=== PATIENT | male | born 1930 | race Caucasian/White ===

== ENCOUNTER 2017-09-21 10:49 | Inpatient (IN) | payer OTHER, MEDICARE ==
[~2017-09-21] VITALS: Ht 177.8 cm; Wt 68.0 kg
[~2017-09-21 10:49] MED LIST: ASPIRIN EC81 M1 PO; COUMADIN4 M1 PO; COUMADIN5 M2 PO; FERROUS SULFAT325 M3 PO; LOVENOX40 MG/0.1 SC; PERCOCET 5-3251 EACH PO
--- NOTE | 2017-09-21 11:06 | ED MVC/FALL/TRAUMA COMPLAINT ---
History of Present Illness General Chief Complaint: Fall Stated Complaint: BIBA L HEEL PAIN S/P FALL X3 DAYS AGO Source: patient Exam Limitations: no limitations Vital Signs & Intake/Output Vital Signs & Intake/Output Vital Signs Date Time Temp Pulse Resp B/P B/P Pulse O2 O2 Flow FiO2 Mean Ox Delivery Rate 09/21 1512 97.8 53 20 180/94 98 Room Air 09/21 1310 96.8 56 18 170/86 97 Room Air 09/21 1124 Room Air 09/21 1052 97.9 56 18 176/87 97 Room Air Allergies Coded Allergies: Iodine and Iodide Containing Produc (Severe, 01/21/16) Reconcile Medications No Known Home Medications Triage Note: BIBA FROM HOME WITH CHIEF COMPLAINT OF LEFT HEEL PAIN, PER FAMILY PATIENT FELL 3 DAYS AGO, EMS ASSISTED PATIENT OFF THE GROUND BUT PATIENT REFUSED TRANSPORT TO THE HOSPITAL. FAMILY CALLED EMS THIS AM DUE TO INABILITY TO AMBULATE AND INCREASE IN PAIN. PATIENT IS ALERT, BUT CONFUSED, LEFT KNEE IS ROTATED INWARD, PULSES PRESENT IN BLE. IS A POOR HISTORIAN. Triage Nurses Notes Reviewed? yes Onset: Abrupt Duration: day(s):, constant Timing: recent history Severity: severe Injuries/Fall Location: lower extremity Method of Injury: fall HPI: 87-year-old male comes into the emergency room for further evaluation of inability to ambulate. Patient reportedly fell 4 days ago. Ambulance came over and did a lift assist. Patient has been laying in the bed since then. He complains of pain to his left hip left knee and left foot. EMS reports that the living conditions of the house were not suitable. There was diarrhea on the floor. They have no help at home. He denies any fever chills vomiting. Denies any other substances symptoms. (Ray Pérez) Past History Travel History Traveled to [place] past 21 day No Medical History Any Pertinent Medical History? see below for history Neurological: NONE EENT: NONE Cardiovascular: hypertension Respiratory: NONE Gastrointestinal: NONE Hepatic: NONE Renal: NONE Musculoskeletal: NONE Psychiatric: NONE Endocrine: NONE Blood Disorders: NONE Cancer(s): NONE History of MRSA: No History of VRE: No History of CDIFF: No Surgical History Surgical History: hernia repair-inguinal (right side) Psychosocial History Who do you live with Spouse Services at Home None What is your primary language Serbian Family History Family History, If Any: MOTHER (cardimyopathyr). Hx Contributory? No (Ray Pérez) Review of Systems Review of Systems Constitutional: Reports: no symptoms. Eyes: Reports: no symptoms. Ears, Nose, Throat, Mouth: Reports: no symptoms. Respiratory: Reports: no symptoms. Cardiovascular: Reports: no symptoms. Gastrointestinal/Abdominal: Reports: no symptoms. Genitourinary: Reports: no symptoms. Musculoskeletal: Reports: see HPI. Skin: Reports: no symptoms. Neurological/Psychological: Reports: no symptoms. All Other Systems: Reviewed and Negative (Ray Pérez) Physical Exam Physical Exam General Appearance: well developed/nourished, alert, awake Head: atraumatic Eyes: Bilateral: normal appearance, EOMI. Ears, Nose, Throat, Mouth: hearing grossly normal, moist mucous membrane Neck: normal inspection Respiratory: no respiratory distress Cardiovascular: regular rate/rhythm Back: normal inspection Extremities: normal range of motion Neurologic/Psych: awake, alert, oriented x 3 Skin: intact, normal color Core Measures ACS in differential dx? No CVA/TIA Diagnosis No Sepsis Present: No Sepsis Focused Exam Completed? No (Ray Pérez) Progress Differential Diagnosis: abd injury, C/T/L spine injury, ext injury, pelvis injury, pnemothorax, spinal cord injury Plan of Care: Orders Procedure Date/time Status Regular Diet 09/21 D Active Patient Data 09/[address] PELVIS WO IV CONTRAST 09/[address] LUMB SPINE WO IV CONTRAST 09/21 1518 Active ED Holding Orders 09/21 1430 Active Admit to inpatient 09/21 1430 Active Vital Signs 09/21 1430 Active Code Status 09/21 1430 Active Add-on Test (ER Only) 09/21 1310 Active CREATINE PHOSPHOKINASE 09/21 1115 Complete URINALYSIS 09/21 1105 Active TROPONIN LEVEL 09/21 1105 Complete COMPREHENSIVE METABOLIC PANEL 09/21 1105 Complete CBC WITHOUT DIFFERENTIAL 09/21 1105 Complete EKG 09/21 1105 Active Current Medications Sig/Lucrecia Start time Last Medication Dose Stop Time Status Admin Sodium Chloride 1,000 ML ONCE ONE 09/21 1415 AC 09/21 (Normal Saline 0.9%) 09/21 2054 1509 Laboratory Tests 09/21/17 1115: Anion Gap 10, Estimated GFR 48 L, BUN/Creatinine Ratio 27.1 H, Glucose 88, Calcium 9.5, Total Bilirubin 0.8, AST 25, ALT 16 L, Alkaline Phosphatase 73, Creatine Kinase 157, Troponin I 0.02, Total Protein 8.4 H, Albumin 4.0, Globulin 4.4 H, Albumin/Globulin Ratio 0.9 L, CBC w Diff NO MAN DIFF REQ, RBC 4.25 L, MCV 93.5, MCH 31.5 H, MCHC 33.7, RDW 14.1, MPV 8.1, Gran % 68.2, Lymphocytes % 24.1, Monocytes % 6.1, Eosinophils % 1.1, Basophils % 0.5, Absolute Granulocytes 5.9, Absolute Lymphocytes 2.1, Absolute Monocytes 0.5, Absolute Eosinophils 0.1, Absolute Basophils 0 Diagnostic Imaging: Viewed by Me: Radiology Read. Discussed w/RAD: Radiology Read. Radiology Impression: PATIENT: MARBELLA ROSENBERG PRESENT AGE: 87 PATIENT ACCOUNT NO: [id number] : [birth year] LOCATION: [facility] ORDERING PHYSICIAN: Ray CARDOSO SERVICE DATE: 09/21/17 EXAM TYPE: RAD - XRY-FOOT COMPLETE, LEFT; XRY-HIP 2-3 VIEWS, LEFT; XRY-KNEE COMPLETE LEFT; XRY- TIBIA-FIBULA, LEFT EXAMINATION: XR PELVIS AND HIP, LEFT XR KNEE, LEFT XR TIBIA AND FIBULA, LEFT XR FOOT, LEFT CLINICAL INFORMATION: Fall. Patient cannot walk. Rule out trauma. COMPARISON: Pelvis and bilateral hip films dated 06/25/2017 TECHNIQUE: Frontal view of the pelvis and coned-down 2 frontal and one crosstable lateral views of the left hip. 4 views of the left knee. 2 views of the left tibia and fibula performed on 3 images. 4 views of the left foot. FINDINGS: PELVIS AND LEFT HIP: Diffuse osteopenia. Intramedullary nail and compression screw in the left hip is again seen transfixing an old healed intertrochanteric fracture of the left hip. Hardware remains intact and unchanged when compared to the prior exam. There is again noted some lucency surrounding the intramedullary nail in the proximal femur, unchanged from prior exam, possibly related to foreign body reaction. No acute fracture or dislocation is seen. There is a sclerotic density in the right femoral head, unchanged from prior exam, likely a bone island. The pubic symphysis is intact. Sacroiliac joints bilaterally are poorly visualized but appear grossly intact. The bony sacrum and coccyx are poorly assessed. Visualized portions appearing similar to the previous pelvis film. Fracture of the sacrum, however, cannot be excluded based on this image. Mild degenerative changes are seen in the hip joints bilaterally, unchanged from prior exam. Mild degenerative changes as seen in the lower lumbar spine. Arteriovascular calcifications is seen in the soft tissues of the pelvis and proximal thighs. LEFT KNEE: Diffuse osteopenia. No acute fracture or dislocation. Mild narrowing of the patellofemoral compartment with associated spurring seen. Medial and lateral femoral compartments unremarkable. No significant knee joint effusion. LEFT TIBIA AND FIBULA: Diffuse osteopenia. No acute fracture or dislocation. No ankle joint effusion. Ankle mortise is intact and unremarkable. LEFT FOOT: Views osteopenia. No acute fracture or dislocation. Moderate degenerative changes in the intertarsal and tarsometatarsal joints seen with likely partial fusion across several of the joints. Mild degenerative changes are seen at the interphalangeal joints of all digits. No radiopaque foreign body is seen. IMPRESSION: 1. Diffuse osteopenia. No definite acute fracture involving the left hip, left knee, left tibia and fibula, and left foot. 2. As discussed above, the bony sacrum and coccyx are not adequately assessed and while the appearance is similar to the previous pelvis film, subtle fracture deformity cannot be excluded. 3. Left hip hardware transfixing an old intratrochanteric hip fracture appears intact and small amount of lucency around the intramedullary nail remains stable, possibly related to foreign body reaction. DICTATED BY: Va Del Rosario MD DATE/TIME DICTATED:09/21/171313 FOIL CUTTER:MELVINA DATE/TIME TRANSCRIBED:1313 CONFIDENTIAL, DO NOT COPY WITHOUT APPROPRIATE AUTHORIZATION. < Electronically signed in Other Vendor System> SIGNED BY: Va Del Rosario MD 09/21/17 1331 Initial ED EKG: rate (68), AFIB (aflutter) (Ray Pérez) Departure Departure Disposition: STILL A PATIENT Condition: Stable Referrals: Patient Has No Primary Care Dr Departure Forms: Customer Survey General Discharge Information Prescriptions: Current Visit Scripts No Known Home Medications Admission Note Spoke With: Marilou Nelson MD Documentation of Exam: Documentation of any treatments & extenuating circumstances including Concerns Regarding Discharge (functional status, medication knowledge or non-compliance, living conditions, etc.) that warrant an admission rather than observation: Patient is unable to ambulate here in the emergency room. Patient will require gentle IV hydration. IV antibiotics. High risk. Medically not safe for discharge. (Ray Pérez) Departure Clinical Impression Primary Impression: Acute kidney injury Secondary Impressions: Multifactorial gait disorder PA/SALES ADMINISTRATION SPECIALIST Co-Sign Statement Statement: ED Attending supervision documentation- [X] I saw and evaluated the patient. I have also reviewed all the pertinent lab results and diagnostic results. I agree with the findings and the plan of care as documented in the PA's/SALES ADMINISTRATION SPECIALIST's documentation. [X] I have reviewed the ED Record and agree with the PA's/SALES ADMINISTRATION SPECIALIST's documentation. [] Additions or exceptions (if any) to the PAs/SALES ADMINISTRATION SPECIALIST's note and plan are summarized below: [Patient is unstable to go home. Patient is not ambulatory. Patient will need IV hydration, renal consultation, physical therapy consultation] (Ina DOVE,Magdaleno Queen
[2017-09-21 11:26] LABS: ABSOLUTE BASOPHIL COUNT 0 /CUMM (0.0-0.2); ABSOLUTE EOSINOPHIL COUNT 0.1 /CUMM (0.0-0.7); ABSOLUTE GRANULOCYTE CT 5.9 /CUMM (1.4-6.5); ABSOLUTE LYMPH COUNT 2.1 /CUMM (1.2-3.4); ABSOLUTE MONOCYTE COUNT 0.5 /CUMM (0.10-0.60); BASOPHIL % 0.5 % (0.0-2.0); EOSINOPHIL % 1.1 % (0-5); GRANULOCYTE % 68.2 % (42.2-75.2); HEMATOCRIT 39.8 % (42-52); MEAN CORPUSCULAR HGB 31.5 PG (27.0-31.0); MEAN CORPUSCULAR HGB CONC 33.7 G/DL (33.0-37.0); MEAN CORPUSCULAR VOLUME 93.5 FL (80.0-94.0); MEAN PLATELET VOLUME 8.1 FL (7.4-10.4); PLATELET COUNT 268 /CUMM (130-400); RBC DISTRIBUTION WIDTH 14.1 % (11.5-14.5); RED BLOOD CELL CT 4.25 /CUMM (4.70-6.10); WHITE BLOOD CELL COUNT 8.6 /CUMM (4.8-10.8)
--- NOTE | 2017-09-21 13:31 | RADIOLOGY REPORT ---
EXAMINATION: XR PELVIS AND HIP, LEFT XR KNEE, LEFT XR TIBIA AND FIBULA, LEFT XR FOOT, LEFT CLINICAL INFORMATION: Fall. Patient cannot walk. Rule out trauma. COMPARISON: Pelvis and bilateral hip films dated 06/25/2017 TECHNIQUE: Frontal view of the pelvis and coned-down 2 frontal and one crosstable lateral views of the left hip. 4 views of the left knee. 2 views of the left tibia and fibula performed on 3 images. 4 views of the left foot. FINDINGS: PELVIS AND LEFT HIP: Diffuse osteopenia. Intramedullary nail and compression screw in the left hip is again seen transfixing an old healed intertrochanteric fracture of the left hip. Hardware remains intact and unchanged when compared to the prior exam. There is again noted some lucency surrounding the intramedullary nail in the proximal femur, unchanged from prior exam, possibly related to foreign body reaction. No acute fracture or dislocation is seen. There is a sclerotic density in the right femoral head, unchanged from prior exam, likely a bone island. The pubic symphysis is intact. Sacroiliac joints bilaterally are poorly visualized but appear grossly intact. The bony sacrum and coccyx are poorly assessed. Visualized portions appearing similar to the previous pelvis film. Fracture of the sacrum, however, cannot be excluded based on this image. Mild degenerative changes are seen in the hip joints bilaterally, unchanged from prior exam. Mild degenerative changes as seen in the lower lumbar spine. Arteriovascular calcifications is seen in the soft tissues of the pelvis and proximal thighs. LEFT KNEE: Diffuse osteopenia. No acute fracture or dislocation. Mild narrowing of the patellofemoral compartment with associated spurring seen. Medial and lateral femoral compartments unremarkable. No significant knee joint effusion. LEFT TIBIA AND FIBULA: Diffuse osteopenia. No acute fracture or dislocation. No ankle joint effusion. Ankle mortise is intact and unremarkable. LEFT FOOT: Views osteopenia. No acute fracture or dislocation. Moderate degenerative changes in the intertarsal and tarsometatarsal joints seen with likely partial fusion across several of the joints. Mild degenerative changes are seen at the interphalangeal joints of all digits. No radiopaque foreign body is seen. IMPRESSION: 1. Diffuse osteopenia. No definite acute fracture involving the left hip, left knee, left tibia and fibula, and left foot. 2. As discussed above, the bony sacrum and coccyx are not adequately assessed and while the appearance is similar to the previous pelvis film, subtle fracture deformity cannot be excluded. 3. Left hip hardware transfixing an old intratrochanteric hip fracture appears intact and small amount of lucency around the intramedullary nail remains stable, possibly related to foreign body reaction.
--- NOTE | 2017-09-21 15:41 | History & Physical ---
Yvette DOVE,Magdaleno 09/21/17 1540: General Information and HPI Allergies/Medications Allergies: Coded Allergies: Iodine and Iodide Containing Produc (Severe, 01/21/16) Home Med list No Known Home Medications Past History Travel History Traveled to [place] past 21 day No Medical History Neurological: NONE EENT: NONE Cardiovascular: aflutter, hypertension Respiratory: NONE Gastrointestinal: NONE Hepatic: NONE Renal: NONE Musculoskeletal: osteoarthritis Psychiatric: NONE Endocrine: NONE Blood Disorders: NONE Cancer(s): NONE History of MRSA: No History of VRE: No History of CDIFF: No Surgical History Surgical History: hernia repair-inguinal (right side) Past Family/Social History Family History Relations & Conditions if any MOTHER (cardimyopathyr). Psychosocial History Who Do You Live With? spouse Services at Home: None Primary Language: Upper Sorbian, Armenian ETOH Use: denies use Illicit Drug Use: denies illicit drug use Living Will? unknown Functional Ability ADLs Independent: dressing, eating, toileting, bathing. Ambulation: independent Core Measures/Misc (03/31) Cerebrovascular Accident CVA/TIA Diagnosis: No Leslie,Marilou 09/21/17 1555: Attending MD Review Statement Attending Statement Attending MD Statement: examined this patient, discuss w/resident/PA/PROPERTY MAINTENANCE SUPERVISOR, agreed w/resident/PA/PROPERTY MAINTENANCE SUPERVISOR, discussed with family, reviewed EMR data (avail), discussed with nursing, discussed with case mgmt, reviewed images, amended to note Attending Assessment/Plan: 87 o/m with pmh of afib/flutter, bph , non compliant, fecal incontinence, generalsied weakness comes with inability to ambualte and unsafe living conditions at home. Patient is limited hisotrian, bedsided gives little bit and pieces of histroy. Labs with absent leukocytosis with mild eleavtion of creatinine. [facility] and generalised physical deconditioning. Will send for UA, urine culture, CT spine r /o compression fracture. PT consult and case management consult. Consider cardiology for a/c. gi/dvt prophyalxis full code. Kailash DOVE,Nicole 09/21/17 2851: Resident Review Statement Resident Statement: examined this patient, discussed with paid internship, agreed with paid internship, reviewed EMR data (avail)
--- NOTE | 2017-09-21 18:40 | CT SCAN REPORT ---
EXAMINATION: NONCONTRAST CT OF THE PELVIS AND LUMBAR SPINE CLINICAL INFORMATION: Low back pain and pelvic pain COMPARISON: Pelvis radiographs 06/25/2017. TECHNIQUE: Multidetector CT acquisitions of the lumbar spine and pelvis are obtained without contrast. Multiplanar reformats are acquired and utilized for image interpretation. FINDINGS: Pelvis: No acute fractures are identified. There is a qian and pin within the proximal left femur with adjacent heterotopic bone formation. No periprosthetic fracture is identified. Stable sclerotic focus within the right femoral head, possibly an enostosis. Aneurysmal dilatation of the infrarenal abdominal aorta measuring up to 5 cm in AP dimension. Aortoiliac atherosclerotic calcification. 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 Significant bladder wall thickening with adjacent stranding that could reflect cystitis and the can be correlated with urinalysis. Distal ureters are mildly dilated. There is a large bowel and fat containing right inguinal hernia without evidence of bowel obstruction. Lumbar spine: 5 nonrib-bearing lumbar-type vertebral bodies Moderate to severe compression deformity at T12 is stable in comparison to a chest x-ray from 06/25/2017. Age-indeterminate compression deformities at the L1-L4 levels with associated endplate Schmorl's nodes. Lumbar alignment is maintained. There is moderate to severe disc volume loss at L4-L5. There is cholelithiasis. There is a left renal cyst. As discussed above there is an infrarenal abdominal aortic aneurysm. Based on the atherosclerotic calcific pattern of the abdominal aorta there may be a few penetrating atherosclerotic ulcers along the periphery of the infrarenal abdominal aorta. Multilevel lumbar spondylosis that is greatest at L4-L5 were multifactorial degenerative changes result in moderate bilateral foraminal stenosis. No definite severe central canal stenosis. IMPRESSION: - Stable appearing chronic compression deformity at T12. Age-indeterminate compression deformities at the L1-L4 levels with associated endplate Schmorl's nodes thickening definitively assessed with MRI if indicated. Multilevel lumbar spondylosis that is greatest at L4-L5 were multifactorial degenerative changes result in moderate bilateral foraminal stenosis. - No acute osseous findings within the pelvis. Significant bladder wall thickening with adjacent stranding that could reflect cystitis and the can be correlated with urinalysis. Distal ureters are mildly dilated. - Aneurysmal dilatation of the infrarenal abdominal aorta measuring up to 5 cm in AP dimension. Based on the atherosclerotic calcific pattern of the abdominal aorta there may be a few penetrating atherosclerotic ulcers along the periphery of the infrarenal abdominal aorta. No retroperitoneal hematoma is identified. 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 - There is a large large bowel and fat containing right inguinal hernia without evidence of bowel obstruction. - Cholelithiasis.
--- NOTE | 2017-09-21 18:45 | CT SCAN REPORT ---
CT HEAD WITHOUT CONTRAST CLINICAL INFORMATION: Fall with confusion. COMPARISON: None available. TECHNIQUE: Contiguous axial imaging was performed from the skull base to vertex without intravenous administration of contrast. 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 A pituitary protocol MRI with and without IV contrast is recommended for further assessment. A primary pituitary lesion such as a macroadenoma is favored with an aneurysm felt to be less likely. There is a extra-axial fluid collection along the lateral margin of the left cerebellum. There is ventricular prominence is disproportionate to sulcal prominence that can be correlated for clinical signs of normal pressure hydrocephalus. There is no intracranial hemorrhage. Spears to white matter differentiation is diffusely maintained without evidence of an evolved acute territorial infarct. The basilar cisterns are preserved. No significant soft tissue abnormality. No acute osseous abnormality. The paranasal sinuses and the mastoid air cells are well-aerated. 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 A pituitary protocol MRI with and without IV contrast is recommended for further assessment. A primary pituitary lesion such as a macroadenoma is favored with an aneurysm felt to be much less likely. - There is ventricular prominence is disproportionate to sulcal prominence that can be correlated for clinical signs of normal pressure hydrocephalus. - No intracranial hemorrhage. There is an extra-axial fluid collection adjacent to the lateral left cerebellum.
--- NOTE | 2017-09-21 20:30 | History & Physical ---
Kee DOVE,[facility] 09/21/17 2030: General Information and HPI MD Statement: I have seen and personally examined MARBELLA ROSENBERG and documented this H&P. The patient is a 87 year old M who presented with a patient stated chief complaint of [fall]. Source of Information: patient History of Present Illness: 87 yo M with a pmhx of afib, htn and hip fracture presenting for fall. The patient states that he fell 4 days ago when the power went out. He states that he was walking to bed 4 years ago and tripped over his feet. He could not get up after trying. He states that his could not pick him up off the ground. He states that he injured his heel when he fell. Since he was unable to get up, he went to bed on the floor next to his acutal bed. 911 was called the next morning who helped him up and walking and states he was not ok. He denies any loss of consciousness, prodromal symptoms or seizure symptoms. The patient decided to go to the ED today because he continued to have L foot pain/burning. Of note the patient states he has not seen a pcp in severeal years and never followed up with cardiology after his last admission for his afib. He has not been taking any anticoagulation. He was found to be in aflutter/fib and the patient adamantly denied any anticoagulation and understood the risks. He complains of L knee and L heel pain, diarrhea x 1 episode and decreased appiteite. He denies lightheadeness, cp, palpitations, abd pain, or n/v. Of note that patients states that his was not wearing his glasses during this incident. Allergies/Medications Allergies: Coded Allergies: Iodine and Iodide Containing Produc (Severe, 01/21/16) Home Med list No Known Home Medications Past History Travel History Traveled to [place] past 21 day No Medical History Neurological: NONE EENT: NONE Cardiovascular: aflutter, hypertension Respiratory: NONE Gastrointestinal: NONE Hepatic: NONE Renal: NONE Musculoskeletal: osteoarthritis Psychiatric: NONE Endocrine: NONE Blood Disorders: NONE Cancer(s): NONE History of MRSA: No History of VRE: No History of CDIFF: No Isolation History: Standard Surgical History Surgical History: hernia repair-inguinal (right side) Past Family/Social History Family History Relations & Conditions if any MOTHER (cardimyopathyr). Psychosocial History Who Do You Live With? spouse Services at Home: None Primary Language: Divehi, Japanese ETOH Use: denies use Illicit Drug Use: denies illicit drug use Living Will? unknown Functional Ability ADLs Independent: dressing, eating, toileting, bathing. Ambulation: independent Review of Systems Review of Systems Constitutional: Reports: see HPI. Cardiovascular: Reports: no symptoms. Respiratory: Reports: no symptoms. GI: Reports: diarrhea. Musculoskeletal: Reports: see HPI, joint pain. Exam & Diagnostic Data Last 24 Hrs of Vital Signs/I&O Vital Signs Date Time Temp Pulse Resp B/P B/P Pulse O2 O2 Flow FiO2 Mean Ox Delivery Rate 09/22 1515 97.2 81 18 116/88 96 Room Air 09/22 0649 97.8 54 18 142/78 95 Room Air 09/22 0000 Room Air 09/21 2300 97.1 64 20 110/84 95 Room Air 09/21 1824 97.8 68 18 170/82 97 Room Air Intake & Output 09/22 1600 09/22 0800 09/22 0000 Intake Total 840 277.5 Output Total Balance 840 277.5 Intake, IV 600 37.5 Intake, Oral 240 240 Number 0 Bowel Movements Patient 157 lb Weight Weight Bed scale Measurement Method Physical Exam General Appearance Alert, Oriented X3, Cooperative, No Acute Distress, Pt leaning / favoring R side HEENT cn2-12 grossly intact, slight L facial droop Cardiovascular Regular Rate, Normal S1, Normal S2 Lungs Clear to Auscultation, Normal Air Movement Abdomen Normal Bowel Sounds, Soft, No Tenderness Extremities no tenderness after palpation of upper or lower extremities, ?L sacral bruise with associated tenderness to palpation Vascular 2+ radial pulses Body Front and Back (Adult) 1) Last 24 Hrs of Labs/Willie: Laboratory Tests 09/22/17 1615: Troponin I 0.02 09/22/17 0600: Sodium Cancelled, Potassium Cancelled, Chloride Cancelled, Carbon Dioxide Cancelled, Anion Gap Cancelled, BUN Cancelled, Creatinine Cancelled, BUN/ Creatinine Ratio Cancelled, Troponin I Cancelled 09/22/17 0440: Anion Gap 6, Estimated GFR 48 L, BUN/Creatinine Ratio 27.1 H, Troponin I 0.02, CBC w Diff NO MAN DIFF REQ, RBC 3.78 L, MCV 93.9, MCH 31.5 H, MCHC 33.6, RDW 13.8, MPV 8.0, Gran % 63.0, Lymphocytes % 26.2, Monocytes % 8.7, Eosinophils % 1.5, Basophils % 0.6, Absolute Granulocytes 4.6, Absolute Lymphocytes 1.9, Absolute Monocytes 0.6, Absolute Eosinophils 0.1, Absolute Basophils 0 09/22/17 0346: Sodium Cancelled, Potassium Cancelled, Chloride Cancelled, Carbon Dioxide Cancelled, Anion Gap Cancelled, BUN Cancelled, Creatinine Cancelled, BUN/ Creatinine Ratio Cancelled 09/22/17 0336: Troponin I Cancelled Assessment/Plan Assessment: A: 87 yo M with a pmhx of afib, htn and hip fracture and severe noncompliance presenting for fall P: #Afib/aflutter Pt REFUSES anticoagulation -f/u cardiology consult -pt understands risks #Fall WBC 8.6 Trop .02x3 Head Ct:- There is a large sellar/suprasellar mass measuring up to 2.6 cm AP by 2 cm TV by 2.4 cm CC. A pituitary protocol MRI with and without IV contrast is recommended for further assessment. A primary pituitary lesion such as a macroadenoma is favored with an aneurysm felt to be much less likely. There is ventricular prominence is disproportionate to sulcal prominence that can be correlated for clinical signs of normal pressure hydrocephalus. No intracranial hemorrhage. There is an extra-axial fluid collection adjacent to the lateral left cerebellum. Pelvis ct: - Stable appearing chronic compression deformity at T12. Age- indeterminate compression deformities at the L1-L4 levels with associated endplate Schmorl's nodes thickening definitively assessed with MRI if indicated. Multilevel lumbar spondylosis that is greatest at L4-L5 were multifactorial degenerative changes result in moderate bilateral foraminal stenosis. - No acute osseous findings within the pelvis. Significant bladder wall thickening with adjacent stranding that could reflect cystitis and the can be correlated with urinalysis. Distal ureters are mildly dilated. - Aneurysmal dilatation of the infrarenal abdominal aorta measuring up to 5 cm in AP dimension. Based on the atherosclerotic calcific pattern of the abdominal aorta there may be a few penetrating atherosclerotic ulcers along the periphery of the infrarenal abdominal aorta. No retroperitoneal hematoma is identified. 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 - There is a large large bowel and fat containing right inguinal hernia without evidence of bowel obstruction. - Cholelithiasis. XR PELVIS AND HIP, LEFT, XR KNEE LEFT ,XR TIBIA AND FIBULA LEFT ,XR FOOT LEFT : 1. Diffuse osteopenia. No definite acute fracture involving the left hip,n left knee, left tibia and fibula, and left foot. 2. As discussed above, the bony sacrum and coccyx are not adequately assessed and while the appearance is similar to the previous pelvis film, subtle fracture deformity cannot be excluded. 3. Left hip hardware transfixing an old intratrochanteric hip fracture appears intact and small amount of lucency around the intramedullary nail remains stable, possibly related to foreign body reaction. -follow UA -fall precuations -pt -pain control -ortho consult for sacral area -cardiology consult, echo per cardiology -trend trops, ekg #suprasellar mass -consider inpatient endo workup vs outpatient per primary team #ckd Cr 1.4 -at baseline, cont to monitor #AAA and RCA -consider vascular consult per primary team, apepars chronic vs outpatient workup #DNR DNI #DVT prophyalxis - subq heparin As Ranked By This Provider Problem List: 1. Fall 2. Atrial flutter Core Measures/Misc (03/31) Acute Coronary Syndrome ACS Diagnosis: No Congestive Heart Failure Congestive Heart Failure Diagnosis No Cerebrovascular Accident CVA/TIA Diagnosis: No VTE (View Protocol) VTE Risk Factors Acute Medical Illness No Mechanical VTE Prophylaxis d/t Other No VTE Pharm Prophylaxis d/t NA PharmProphylax ordered Sepsis (View protocol) Sepsis Present: No Sukhwinder Schmidt 09/21/17 2301: General Information and HPI Exam Limitations: patient's age Resident Review Statement Resident Statement: examined this patient, discussed with music internship, amended to note Other Findings: Ms Rosenberg is an 87-year-old man with a past medical history of hypertension, old troch hip fracture was brought from home in with a chief concern of inability to ambulate secondary to fall that occurred 3 days ago. He also has a chief concern of increased left hip, left knee and left foot. As per the pt, he fell down when there was a power outage a few nights ago and could not get up off the floor. He remained on the floor overnight, until the help arrived in the a.m. Reported that he did not have any loss of consciousness, prodromal symptoms, or had any loss of bladder or bowel function. Reported decreased by mouth intake after the episode occurred, and has been taking aspirin ever since. He does not take any medications as prescribed. He has not seen any primary care physician in the last few years, and reported that he does not want to take any medications. For his atrial fibrillation, he has not been taking any medications such as anticoagulates or rate controlling medications. At the time of [id number] 97.9, pulse rate 56, respiration 18, blood pressure 176/87, 97% on room air. On examination: General Exam: AAOx3, No acute distress, decreased vision ( which is chronic ) Skin: No rashes, no breakdown HEENT: PERRLA, EOMI Neck: Supple, No JVD No cervical lymphadenopathy CVS: Reg Rate, Normal S1,S2, No MGR Resp: Normal air entry, no ronchi/rales Abdomen: Soft, No tenderness, Normal Bowel Sounds Neuro: Normal Speech, Strength 5/5 b/l x 4 extremities, Sensation intact, CN III -XII NL, Reflexes 2+ Extremities: No cyanosis, pedal edema, ecchymosis in the sacral area w/ associated tenderness. Pertinent lab findings: WBC 8.6, hemoglobin 13.4, platelets 268, sodium 139, potassium 4.4, BUN 38, creatinine 1.4. Liver chemistries-AST 25, ALT 16, total protein 8.4. CPK 157. Urinalysis-pending. EKG reveals atrial flutter, rate controlled, no ST-T wave changes. 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 A pituitary protocol MRI with and without IV contrast is recommended for further assessment. A primary pituitary lesion such as a macroadenoma is favored with an aneurysm felt to be much less likely. - There is ventricular prominence is disproportionate to sulcal prominence that can be correlated for clinical signs of normal pressure hydrocephalus. - No intracranial hemorrhage. There is an extra-axial fluid collection adjacent to the lateral left cerebellum. CT lumbar spine: - Stable appearing chronic compression deformity at T12. Age-indeterminate compression deformities at the L1-L4 levels with associated endplate Schmorl's nodes thickening definitively assessed with MRI if indicated. Multilevel lumbar spondylosis that is greatest at L4-L5 were multifactorial degenerative changes result in moderate bilateral foraminal stenosis. - No acute osseous findings within the pelvis. Significant bladder wall thickening with adjacent stranding that could reflect cystitis and the can be correlated with urinalysis. Distal ureters are mildly dilated. - Aneurysmal dilatation of the infrarenal abdominal aorta measuring up to 5 cm in AP dimension. Based on the atherosclerotic calcific pattern of the abdominal aorta there may be a few penetrating atherosclerotic ulcers along the periphery of the infrarenal abdominal aorta. No retroperitoneal hematoma is identified. 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 - There is a large large bowel and fat containing right inguinal hernia without evidence of bowel obstruction. - Cholelithiasis. X-ray foot, hip, knee, tibia-fibula: 1. Diffuse osteopenia. No definite acute fracture involving the left hip, left knee, left tibia and fibula, and left foot. 2. As discussed above, the bony sacrum and coccyx are not adequately assessed and while the appearance is similar to the previous pelvis film, subtle fracture deformity cannot be excluded. 3. Left hip hardware transfixing an old intratrochanteric hip fracture appears intact and small amount of lucency around the intramedullary nail remains stable, possibly related to foreign body reaction. Etiology for his fall is multifactorial with dehydration, cardiac causes, deconditioning seem more likely. In regards to his radiological findings, he has stable chronic compression deformity at T12. Bony sacrum and coccyx by chest x-ray could not be visualized to rule out a fracture, which could be evaluated further. He also has an incidental diagnosis of aneurysmal dilatation in the abdominal aorta up to 5 cm, with no previous findings to follow up. Plan: #1 atrial flutter #2 fall #3 hypertension #4 AAA #6 Rule out fracture of sacrum and coccyx #7 pituitary macroadenoma #1 atrial flutter-given his high chadVasc score, he needs to be anticoagulated for the time being. Pt doesnt want to anticoagulated. Discussed the risks versus benefits and he understands the risks completely. #2 adequate rate control, if required #3 monitor on telemetry #4 pain control with Tylenol, tramadol, Lidoderm patch. #5 further endocrine workup of pituitary by the a.m. team. #6 orthopedic consult. #7 cardiac consult in the a.m. #8 trend EKGs, troponins #9 deferred the decision to the behavior specialist, if an echocardiogram is warranted. Housekeeping: #1 DVT prophylaxis-subcutaneous heparin #2 DNR/DNI #3 diet-regular diet #4 consults-orthopedic, cardiology. Marilou Nelson 09/22/17 1003: Exam & Diagnostic Data Last 24 Hrs of Vital Signs/I&O Vital Signs Date Time Temp Pulse Resp B/P B/P Pulse O2 O2 Flow FiO2 Mean Ox Delivery Rate 09/22 0649 97.8 54 18 142/78 95 Room Air 09/22 0000 Room Air 09/21 2300 97.1 64 20 110/84 95 Room Air 09/21 1824 97.8 68 18 170/82 97 Room Air 09/21 1600 84 18 170/82 95 Room Air 09/21 1512 97.8 53 20 180/94 98 Room Air Intake & Output 09/22 1600 09/22 0800 09/22 0000 Intake Total 840 277.5 Output Total Balance 840 277.5 Intake, IV 600 37.5 Intake, Oral 240 240 Number 0 Bowel Movements Patient 71.356 kg Weight Weight Bed scale Measurement Method Attending MD Review Statement Attending Statement Attending MD Statement: examined this patient, discuss w/resident/PA/[employer]ER, agreed w/resident/PA/[employer] FARMER, discussed with family, reviewed EMR data (avail), discussed with nursing, discussed with case mgmt, reviewed images, amended to note Attending Assessment/Plan: 87 o/m with pmh of afib/flutter, bph , non compliant, fecal incontinence, generalsied weakness comes with inability to ambualte and unsafe living conditions at home. Patient found to have afib with bradycardia. Admit to [facility] tele[facility] services for afib/bradycardia and inability to ambulate and generalised physical deconditioning. UA, urine culture, CT spine r/ o compression fracture. PT consult and case management consult. Consider cardiology for a/c. gi/dvt prophyalxis full code.
[2017-09-21 23:00] VITALS: BP 110/84
[2017-09-22 05:32] LABS: ABSOLUTE BASOPHIL COUNT 0 /CUMM (0.0-0.2); ABSOLUTE EOSINOPHIL COUNT 0.1 /CUMM (0.0-0.7); ABSOLUTE GRANULOCYTE CT 4.6 /CUMM (1.4-6.5); ABSOLUTE LYMPH COUNT 1.9 /CUMM (1.2-3.4); ABSOLUTE MONOCYTE COUNT 0.6 /CUMM (0.10-0.60); BASOPHIL % 0.6 % (0.0-2.0); EOSINOPHIL % 1.5 % (0-5); HEMATOCRIT 35.5 % (42-52); MEAN CORPUSCULAR HGB 31.5 PG (27.0-31.0); MEAN CORPUSCULAR HGB CONC 33.6 G/DL (33.0-37.0); MEAN CORPUSCULAR VOLUME 93.9 FL (80.0-94.0); PLATELET COUNT 256 /CUMM (130-400); RBC DISTRIBUTION WIDTH 13.8 % (11.5-14.5); RED BLOOD CELL CT 3.78 /CUMM (4.70-6.10); WHITE BLOOD CELL COUNT 7.3 /CUMM (4.8-10.8)
[2017-09-22 06:49] VITALS: BP 142/78
--- NOTE | 2017-09-22 12:05 | Cons- Cardiology ---
General Information and HPI Consulting Request Date of Consult: 09/22/17 Requested By: Marilou Nelson MD History of Present Illness: Mr. Matos is an 87 year old male with history of hypertension, atrial fibrillation and multiple falls. About four days ago this patient was walking in the dark during the power outage when he fall with injury to his left hip, knee and foot. He was not able to arise from the floor until help arrived in the morning after this event. The patient denies fainting or any pre-monitory symptoms. He denies chest discomfort, shortness of breath, lightheadedness or palpitations. 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 At that time he was found to be in atrial fibrillation with slow heart rate even in the absence of rate control medications. He was also recommended to take anticoagulation but refused to take medications of follow up with any physician. This patient is noted to have an extremely slow heart rate. At this time the patient refuses a pacemaker. Allergies/Medications Allergies: Coded Allergies: Iodine and Iodide Containing Produc (Severe, 01/21/16) Home Med List: No Known Home Medications Review of Systems Review of Systems: * A review of systems is unremarkable. Past History Travel History Traveled to [place] past 21 day No Medical History Blood Transfusion Hx: No Neurological: NONE EENT: NONE Cardiovascular: aflutter, hypertension Respiratory: NONE Gastrointestinal: NONE Hepatic: NONE Renal: NONE, benign prost hyperplasia Musculoskeletal: osteoarthritis Psychiatric: NONE Endocrine: NONE Blood Disorders: NONE Cancer(s): NONE Surgical History Surgical History: hernia repair-inguinal (right side) Family History Relations & Conditions If Any: MOTHER (cardimyopathyr). Psychosocial History Where Do You Live? Home Who Do You Live With? spouse Services at Home: None Primary Language: Malagasy, Austrian Smoking Status: Former Smoker ETOH Use: denies use Illicit Drug Use: denies illicit drug use Living Will? unknown Functional Ability ADLs Independent: dressing, eating, toileting, bathing. Ambulation: independent Exam & Diagnostic Data Vital Signs and I&O Vital Signs Date Time Temp Pulse Resp B/P B/P Pulse O2 O2 Flow FiO2 Mean Ox Delivery Rate 09/22 0649 97.8 54 18 142/78 95 Room Air 09/22 0000 Room Air 09/21 2300 97.1 64 20 110/84 95 Room Air 09/21 1824 97.8 68 18 170/82 97 Room Air 09/21 1600 84 18 170/82 95 Room Air 09/21 1512 97.8 53 20 180/94 98 Room Air 09/21 1310 96.8 56 18 170/86 97 Room Air Intake & Output 09/22 1600 09/22 0800 09/22 0000 09/21 1600 09/21 0800 09/21 0000 Intake Total 840 277.5 0 Output Total Balance 840 277.5 0 Intake, IV 600 37.5 Intake, Oral 240 240 0 Number 0 Bowel Movements Patient 157 lb 180 lb Weight Weight Bed scale Estimated Measurement Method Physical Exam: General: WD/WN female in NAD; alert and oriented x 3 HEENT: NC/AT, PERRL, EOMI Neck: no JVD, no carotid bruit Heart: irregularly irregular and bradycardic Lungs: clear bilaterally ABdomen: soft, NT, +ve bowel sounds Extremities: no edema Assessment/Plan Assessment/Plan * This patient is bradycardic and has had multiple falls. It is unclear if the falls are due to tripping or passing out but I strongly suspect that, even if due to tripping, it may be related to decreased concentration from decreased cerebral perfusion in the setting of his severe bradycardia. A pacemaker is indicated but is currently being refused by the patient. His will talk to him. * In regard to his atrial fibrillation, he is rate controlled off all medications consistent with conduction system disease. Check a TSH and free T4 and lyme disease titer. I would leave this patient off all anticoagulation which he does not want to take since he is a fall risk. * This patient is hypertensive and has a TSH showing an AAA. In consideration of his already slow heart rate we will not need to begin beta blockers. I would also hold off on all other antihypertensive medications unless her is protected by a pacemaker. He should be on a statin if he is willing to take it. Consult Acknowledgment - Thank you for your consult request.
--- NOTE | 2017-09-22 14:10 | PN- Att Addend ---
Attending Addendum Attending Brief Note 87 yo M states that he fell 4 days ago when the power went out. He states that he was wlaking to bed 4 years ago and tripped over his feet. He could not get up after trying. He states that his could not pick him up off the group. He states that he injured his heel when he fell. He states wesley the went to bed on the floor next to his acutal bed. 911 was called who helped him up and walking and states he was not ok. Patient seen/examined bedside. Patient is tolerating PO. Patient denies any new complaints. Vitals stable. Labs and imaging noted. Overnight needed atropine for bradycardia, Cardiology consutled and appreciate recommendations. General Exam: AAOx3, No acute distress, decreased vision ( which is chronic ) Skin: no significant HEENT: PERRLA, EOMI Neck: Supple, No JVD No cervical lymphadenopathy CVS: Reg Rate, Normal S1,S2, No MGR Resp: Normal air entry, no ronchi/rales Abdomen: Soft, No tenderness, Normal Bowel Sounds Neuro: Normal Speech, Strength 5/5 b/l x 4 extremities, Sensation intact, CN III -XII NL, Reflexes 2+ Extremities: ecchymosis in the sacral area w/ associated tenderness+. ASSESSMENT AND PLAN 87 o/m with pmh of afib/flutter, bph , non compliant, fecal incontinence, generalsied weakness comes with inability to ambualte and unsafe living conditions at home. Admit to telemtery monitoring for atrial fibrillation with bradycardia and conduction system disease with generalised physical deconditioning and fall. CT spine with chronic stable compression fracture. Orthopedics consult. PT consult and case management consult. F/u cardiology for a/c. (patient refuses a/c) gi/dvt prophyalxis full code. Admission Lab Results I reviewed the following labs: Laboratory Tests 09/22 09/22 09/22 0600 0440 0346 Chemistry Sodium (137 - 145 mmol/L) Cancelled 137 Cancelled Potassium (3.5 - 5.1 mmol/L) Cancelled 3.9 Cancelled Chloride (98 - 107 mmol/L) Cancelled 108 H Cancelled Carbon Dioxide (22 - 30 mmol/L) Cancelled 22 Cancelled Anion Gap (5 - 16) Cancelled 6 Cancelled BUN (9 - 20 mg/dL) Cancelled 38 H Cancelled Creatinine (0.7 - 1.2 mg/dL) Cancelled 1.4 H Cancelled Estimated GFR (>60 ml/min) 48 L BUN/Creatinine Ratio (7 - 25 %) Cancelled 27.1 H Cancelled Troponin I (<0.11 ng/ml) Cancelled 0.02 Hematology CBC w Diff NO MAN DIFF REQ WBC (4.8 - 10.8 /CUMM) 7.3 RBC (4.70 - 6.10 /CUMM) 3.78 L Hgb (14.0 - 18.0 G/DL) 11.9 L Hct (42 - 52 %) 35.5 L MCV (80.0 - 94.0 FL) 93.9 MCH (27.0 - 31.0 PG) 31.5 H MCHC (33.0 - 37.0 G/DL) 33.6 RDW (11.5 - 14.5 %) 13.8 Plt Count (130 - 400 /CUMM) 256 MPV (7.4 - 10.4 FL) 8.0 Gran % (42.2 - 75.2 %) 63.0 Lymphocytes % (20.5 - 51.1 %) 26.2 Monocytes % (1.7 - 9.3 %) 8.7 Eosinophils % (0 - 5 %) 1.5 Basophils % (0.0 - 2.0 %) 0.6 Absolute Granulocytes (1.4 - 6.5 /CUMM) 4.6 Absolute Lymphocytes (1.2 - 3.4 /CUMM) 1.9 Absolute Monocytes (0.10 - 0.60 /CUMM) 0.6 Absolute Eosinophils (0.0 - 0.7 /CUMM) 0.1 Absolute Basophils (0.0 - 0.2 /CUMM) 0 09/22 0336 Chemistry Troponin I Cancelled Admission Meds I reviewed the following Meds: Current Medications Sig/Lucrecia Start time Last Medication Dose Stop Time Status Admin Acetaminophen 500 MG Q8 09/21 2200 AC 09/22 (Tylenol) 0626 Acetaminophen 650 MG Q6P PRN 09/21 1845 AC (Tylenol) Atropine Sulfate 1 MG ONE PRN 09/22 0315 AC (Atropine) Dextrose/Sodium 1,000 ML .[id number] 09/21 1845 AC 09/21 Chloride 2304 (D5W-1/2 Normal Saline 1000ML) Heparin Sodium 5,000 UNIT Q8 09/21 2199 AC 09/22 (Porcine) 0626 Heparin Sodium 5,000 UNIT Q8 09/21 2199 CAN (Porcine) Lidocaine 1 PAT DAILY 09/21 2199 AC 09/22 (Lidoderm) 0932 Melatonin 3 MG AT BEDTIME 09/21 2199 AC 09/21 (Melatonin) 2307 Oxycodone HCl 5 MG Q8P PRN 09/21 2215 AC (Roxicodone) Tramadol HCl 50 MG Q8P PRN 09/21 2215 AC (Ultram)
[2017-09-22 15:15] VITALS: BP 116/88
--- NOTE | 2017-09-22 19:38 | Cons- Orthopedic ---
General Information and HPI Consulting Request Date of Consult: 09/22/17 Requested By: Marilou Nelson MD Reason for Consult: Possible Compression fracture Source of Information: patient, old records Exam Limitations: unable to give history, confusion History of Present Illness: This patient was recently admitted with a history of a fall and complained of back pain. Patient had evaluation including CT scan which showed what appeared to be a chronic-appearing compression of T12 but question of subacute lumbar deformities. Consult was placed for possible compression fracture. Patient complains of some pain. No paresthesias Allergies/Medications Allergies: Coded Allergies: Iodine and Iodide Containing Produc (Severe, 01/21/16) Home Med List: No Known Home Medications Past History Medical History Blood Transfusion Hx: No Neurological: NONE EENT: NONE Cardiovascular: aflutter, hypertension Respiratory: NONE Gastrointestinal: NONE Hepatic: NONE Renal: NONE, benign prost hyperplasia Musculoskeletal: osteoarthritis Psychiatric: NONE Endocrine: NONE Blood Disorders: NONE Cancer(s): NONE Surgical History Pertinent Surgical History: hernia repair-inguinal (right side) Family History Relations & Conditions If Any: MOTHER (cardimyopathyr). Psychosocial History Where Do You Live? Home Who Do You Live With? spouse Services at Home: None Primary Language: Peruvian, Thai Smoking Status: Former Smoker ETOH Use: denies use Illicit Drug Use: denies illicit drug use Living Will? unknown Functional Ability ADLs Independent: dressing, eating, toileting, bathing. Ambulation: independent Exam & Diagnostic Data Vital Signs and I&O Vital Signs Date Time Temp Pulse Resp B/P B/P Pulse O2 O2 Flow FiO2 Mean Ox Delivery Rate 09/22 1515 97.2 81 18 116/88 96 Room Air 09/22 0649 97.8 54 18 142/78 95 Room Air 09/22 0000 Room Air 09/21 2300 97.1 64 20 110/84 95 Room Air Intake & Output 09/22 1600 09/22 0800 09/22 0000 09/21 1600 09/21 0800 09/21 0000 Intake Total 840 277.5 0 Output Total Balance 840 277.5 0 Intake, IV 600 37.5 Intake, Oral 240 240 0 Number 0 Bowel Movements Patient 157 lb 180 lb Weight Weight Bed scale Estimated Measurement Method Physical Exam: Patient very sleepy but arousable. Some confusion. Complains of some back pain. There is tenderness along the lumbar spine midline no definite deformity by exam. Moving both lower extremities . Difficult to assess strength exam but does not appear to be asymmetric Imaging Results: I reviewed CT scan which revealed chronic deformity at T12. Question of subacute wedging of multiple lumbar vertebral bodies as well as bony deformity of endplates which may represent Schmorl's nodes. It is difficult to determine whether these findings are acute or not Assessment/Plan Assessment/Plan Possible acute compression fracture lumbar spine-the only way to determine whether these are acute would be to consider MRI evaluation versus bone scan. If there is any questions clinically, I recommended an MRI evaluation if not contraindicated for other reasons. I explained this to the resident. Lumbosacral support can be used for comfort and to help with ambulation though there are have been other significant limitations to ambulation. Consult Acknowledgment - Thank you for your consult request. Attending MD Review Statement Attending Statement Attending MD Statement: examined this patient, discuss w/resident/PA/PRODUCT DEVELOPMENT MANAGER
[2017-09-22 22:57] VITALS: BP 120/80
[2017-09-23 07:30] VITALS: BP 196/104
[2017-09-23 07:35] VITALS: BP 152/86
--- NOTE | 2017-09-23 07:54 | PN- Housestaff ---
Subjective Follow-up For: 1. Mechanical fall 2. Atrial flutter with Bradycardia 3. Hypertension 4. JACQUELIN 5. ??Chronic Compression ddeformities L1-L4 Tele-Events Since Last Visit: Atrial flutter with multiple PVCs Heart 37-70 Subjective: Patient aware of his current Heart condition but does not want any intervention, states he has lived without medications or any heart device for 87 years and even now can survive without them. Denies any pain in his back,has only mild pain in his left heel. Review of Systems Constitutional: Reports: no symptoms. EENTM: Reports: no symptoms. Cardiovascular: Reports: no symptoms. Respiratory: Reports: no symptoms. Gastrointestinal: Reports: no symptoms. Genitourinary: Reports: no symptoms. Musculoskeletal: Reports: joint pain. Skin: Reports: no symptoms. Neurological/Psychological: Reports: no symptoms. Hematologic/Endocrine: Reports: no symptoms. Immunologic/Allergic: Reports: no symptoms. Objective Last 24 Hrs of Vital Signs/I&O Vital Signs Date Time Temp Pulse Resp B/P B/P Pulse O2 O2 Flow FiO2 Mean Ox Delivery Rate 09/23 0735 152/86 09/23 0730 97.5 85 20 196/104 94 Room Air 09/23 0612 74 194/104 09/22 2257 98.2 66 20 120/80 98 09/22 1515 97.2 81 18 116/88 96 Room Air Intake & Output 09/23 1600 09/23 0800 09/23 0000 Intake Total 625 660 Output Total 20 Balance 605 660 Intake, IV 525 300 Intake, Oral 100 360 Number 1 Bowel Movements Output, Urine 20 Patient 159 lb Weight Physical Exam General Appearance: Alert, Oriented X3, Cooperative, No Acute Distress Skin: No Rashes, No Breakdown Cardiovascular: Normal S1, Normal S2, Irregular Lungs: Normal Air Movement Abdomen: Normal Bowel Sounds, Soft, No Tenderness Extremities: No Clubbing, No Cyanosis, No Edema, Slight tenderness to palpation on left heel Current Medications: Current Medications Sig/Lucrecia Start time Last Medication Dose Route Stop Time Status Admin Acetaminophen 500 MG .STK-MED ONE 09/22 2220 DC PO 09/22 222 Acetaminophen 500 MG .STK-MED ONE 09/22 1814 DC PO 09/22 1815 Acetaminophen 500 MG Q8 09/21 2200 AC 09/22 PO 1400 Acetaminophen 650 MG Q6P PRN 09/21 1845 AC PO Atropine Sulfate 1 MG ONE PRN 09/22 0315 AC IV Dextrose/Sodium 1,000 ML .[id number] 09/21 1845 DC 09/23 Chloride IV 1205 Heparin Sodium 5,000 UNIT Q8 09/21 2200 AC 09/23 (Porcine) SC 0611 Hydralazine HCl 5 MG ONCE ONE 09/23 0600 DC 09/23 IV 09/23 0601 0612 Lidocaine 1 PAT DAILY 09/21 2199 AC 09/23 EXT 1206 Melatonin 3 MG AT BEDTIME 09/21 220 AC 09/22 PO 2226 Oxycodone HCl 5 MG Q8P PRN 09/21 221 AC PO Tramadol HCl 50 MG Q8P PRN 09/21 2215 AC PO Last 24 Hrs of Lab/Willie Results Last 24 Hrs of Labs/Mics: Laboratory Tests 09/23/17 1035: Anion Gap 8, Estimated GFR 57 L, BUN/Creatinine Ratio 30.8 H 09/23/17 0640: TSH 0.403, Free T4 1.26, Lyme Disease Antibody 0.13 09/23/17 0530: Urine Color YEL, Urine Clarity TURBD H, Urine pH 7.0, Ur Specific [place] 1.020 , Urine Protein 100 H, Urine Ketones NEG, Urine Nitrite NEG, Urine Bilirubin NEG, Urine Urobilinogen 0.2, Ur Leukocyte Esterase MOD H, Ur Microscopic SEDIMENT EXAMINED, Urine RBC >75 H, Urine WBC PACKD H, Ur Epithelial Cells OCCAS, Urine Bacteria MANY H, Urine Mucus MANY H, Urine Hemoglobin LARGE H, Urine Glucose NEG 09/22/17 1615: Troponin I 0.02 Microbiology 09/23 0530 URINE ROUT: Urine Culture - RECD Assessment/Plan Assessment: Ms Matos is an 87-year-old man with a past medical history of hypertension, Atrial fibrillation not on AC(patient refuses), old troch hip fracture was brought from home in with a chief concern of inability to ambulate secondary to fall that occurred 3 days ago. Problem List; 1. Mechanical fall 2. Atrial flutter with Bradycardia 3. Hypertension 4. JACQUELIN - resolved 5. ??Chronic Compression ddeformities L1-L4 6. Incidental finding of 5cm infrarenal abdominal aortic aneurysm 7. 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 Atropine at bedside. Also continue to watch off anticoagulation per cardiology. - Echocardiogram pending. - Appreciate cardiology recommendations. - PT consult for discharge recommendations - Psychiatric consult; To evaluate his capacity to make medical decisions as the patient is refusing any medical intervention or medications. - Patient currently not complaining of any back pain and states that he fractured his back when he had a fall 2 years ago. We will hold off on MRI for now. - JACQUELIN, patient had creatinine of 1.4 at the time of admission, trended down to 1.2. - Blood pressure this morning was 196/104, came down to 152/86 after 1 dose of IV hydralazine 5 mg. We will continue to monitor, if remains persistently high patient will need to be started on antihypertensive medications given aortic aneurysm and risk of dissection. - Outpatient follow-up for the incidental findings of infrarenal aortic aneurysm and sellar/suprasellar mass on head CT. Problem List: 1. Atrial flutter Pain Ratin Pain Location: Left Heel Pain Goal: Remain pain free Pain Plan: Pain Pathway Tomorrow's Labs & Rationales: CBC(drop in H&H)
--- NOTE | 2017-09-23 09:24 | PN- Cardiology ---
Subjective Subjective: The patient is awake and alert and wants to go home. He tells me he tripped in the dark as his power was out, and denies having dizziness, presyncope or nick syncope. He is aware of atrial fibrillation and is aware of a slow heart rate and is consistently refusing pacemaker and anticoagulation. He states he lives with his and has no surviving children at this time. There is some indication in the ED notes that his home situation was not sanitary. He has not seen any physicians since his last hospitalization in 2016. His last physician was Mike Xiong MD, according to him. Review of telemetry tracings reveal significant periods of bradycardia, and atrial fibrillation/flutter with heart rates in the 30s. These were apparently asymptomatic Objective Vital Signs and I&Os Vital Signs Date Time Temp Pulse Resp B/P B/P Pulse O2 O2 Flow FiO2 Mean Ox Delivery Rate 09/23 0735 152/86 09/23 0730 97.5 85 20 196/104 94 Room Air 09/23 0612 74 194/104 09/22 2257 98.2 66 20 120/80 98 09/22 1515 97.2 81 18 116/88 96 Room Air Intake & Output 09/23 1600 09/23 0800 09/23 0000 09/22 1600 09/22 0800 09/22 0000 Intake Total 398 479 0415 840 277.5 Output Total 20 Balance 919 617 4642 840 277.5 Intake, IV 588 359 7458 600 37.5 Intake, Oral 100 360 300 240 240 Number 1 2 0 Bowel Movements Output, Urine 20 Patient 159 lb 157 lb Weight Weight Bed scale Measurement Method Physical Exam: No acute distress. Awake and alert. Hard of hearing but otherwise appropriate answers. HEENT exam normal Chest clear Heart irregular, normal rate at this time, no murmurs Extremities no edema Current Medications: Current Medications Sig/Lucrecia Start time Last Medication Dose Route Stop Time Status Admin Acetaminophen 500 MG .STK-MED ONE 09/22 2220 DC PO 09/22 2221 Acetaminophen 500 MG .STK-MED ONE 09/22 1813 DC PO 09/22 1814 Acetaminophen 500 MG Q8 09/21 2200 AC 09/22 PO 1400 Acetaminophen 650 MG Q6P PRN 09/21 1845 AC PO Atropine Sulfate 1 MG ONE PRN 09/22 0315 AC IV Dextrose/Sodium 1,000 ML .[id number] 09/21 1845 AC 09/22 Chloride IV 195 Heparin Sodium 5,000 UNIT Q8 09/21 2199 AC 09/23 (Porcine) SC 0611 Hydralazine HCl 5 MG ONCE ONE 09/23 0600 DC 09/23 IV 09/23 0601 0612 Lidocaine 1 PAT DAILY 09/21 2199 09/22 EXT 0932 Melatonin 3 MG AT BEDTIME 09/21 2199 AC 09/22 PO 2226 Oxycodone HCl 5 MG Q8P PRN 09/21 2214 AC PO Tramadol HCl 50 MG Q8P PRN 09/21 221 AC PO Results Last 48 Hrs of Labs/Mics: Laboratory Tests 09/23/17 0640: TSH 0.403, Free T4 1.26, Lyme Disease Antibody Pending 09/23/17 0530: Urine Color YEL, Urine Clarity TURBD H, Urine pH 7.0, Ur Specific [place] 1.020 , Urine Protein 100 H, Urine Ketones NEG, Urine Nitrite NEG, Urine Bilirubin NEG, Urine Urobilinogen 0.2, Ur Leukocyte Esterase MOD H, Ur Microscopic SEDIMENT EXAMINED, Urine RBC >75 H, Urine WBC PACKD H, Ur Epithelial Cells OCCAS, Urine Bacteria MANY H, Urine Mucus MANY H, Urine Hemoglobin LARGE H, Urine Glucose NEG 09/22/17 1615: Troponin I 0.02 09/22/17 0600: Sodium Cancelled, Potassium Cancelled, Chloride Cancelled, Carbon Dioxide Cancelled, Anion Gap Cancelled, BUN Cancelled, Creatinine Cancelled, BUN/ Creatinine Ratio Cancelled, Troponin I Cancelled 09/22/17 0440: Anion Gap 6, Estimated GFR 48 L, BUN/Creatinine Ratio 27.1 H, Troponin I 0.02, CBC w Diff NO MAN DIFF REQ, RBC 3.78 L, MCV 93.9, MCH 31.5 H, MCHC 33.6, RDW 13.8, MPV 8.0, Gran % 63.0, Lymphocytes % 26.2, Monocytes % 8.7, Eosinophils % 1.5, Basophils % 0.6, Absolute Granulocytes 4.6, Absolute Lymphocytes 1.9, Absolute Monocytes 0.6, Absolute Eosinophils 0.1, Absolute Basophils 0 09/22/17 0346: Sodium Cancelled, Potassium Cancelled, Chloride Cancelled, Carbon Dioxide Cancelled, Anion Gap Cancelled, BUN Cancelled, Creatinine Cancelled, BUN/ Creatinine Ratio Cancelled 09/22/17 0336: Troponin I Cancelled 09/21/17 1115: Anion Gap 10, Estimated GFR 48 L, BUN/Creatinine Ratio 27.1 H, Glucose 88, Calcium 9.5, Total Bilirubin 0.8, AST 25, ALT 16 L, Alkaline Phosphatase 73, Creatine Kinase 157, Troponin I 0.02, Total Protein 8.4 H, Albumin 4.0, Globulin 4.4 H, Albumin/Globulin Ratio 0.9 L, CBC w Diff NO MAN DIFF REQ, RBC 4.25 L, MCV 93.5, MCH 31.5 H, MCHC 33.7, RDW 14.1, MPV 8.1, Gran % 68.2, Lymphocytes % 24.1, Monocytes % 6.1, Eosinophils % 1.1, Basophils % 0.5, Absolute Granulocytes 5.9, Absolute Lymphocytes 2.1, Absolute Monocytes 0.5, Absolute Eosinophils 0.1, Absolute Basophils 0 09/21/17 1105: Urine Color Cancelled, Urine Clarity Cancelled, Urine pH Cancelled, Ur Specific [place] Cancelled, Urine Protein Cancelled, Urine Ketones Cancelled, Urine Nitrite Cancelled, Urine Bilirubin Cancelled, Urine Urobilinogen Cancelled, Ur Leukocyte Esterase Cancelled, Ur Microscopic Cancelled, Urine Hemoglobin Cancelled, Urine Glucose Cancelled Assessment/Plan Assessment/Plan The patient had what appears to be a mechanical fall. He is in chronic atrial fibrillation, not anticoagulated because of refusal. He has periods of significant bradycardia, meeting criteria for pacemaker although there is no definite correlation with symptoms. The patient seems competent to make decisions based on casual conversation but a formal psychiatric consultation for competency might be useful. He will also need physical therapy assessment. Perhaps consultation with social media intern regarding his home situation would also be appropriate. Continue telemetry? Yes
--- NOTE | 2017-09-23 14:32 | PN- Att Addend ---
Attending Addendum Attending Brief Note Patient seen and examined. Lying comfortably in bed not in any acute distress. Denies chest pain or shortness of breath. Denies cough. Patient claims he hurt his back when he fell. He denies any back pain at present with rest or with activity. States he does not require any pain medications. There is no documentation or prior back imaging here in the hospital. The fractures noted on imaging done shows appear to be asymptomatic. Patient was noted to be bradycardic during this admission with heart rate in the 30s.Cardiology service is recommending pacemaker placement. Patient declines to have this done. Stating that he has refused this in the past as well. He is aware of the need for the pacemaker but states that due to his advanced age he does not want this done. He has also been refusing anticoagulation therapy even prior to admission. Recommendations: -Physical therapy consultation for discharge planning. -Psychiatric consultation to ensure patient has full capacity. From my conversation with the patient he appears to fully understand the need for the medication and procedure he is refusing. He does not wish to proceed due to his advanced age. I did let him know that this is not a contraindication to the procedures of treatment. We will honor his wishes. I did reach out to his although no reply on the phone. Patient reports that he has no other family members. -Continue teletypesetter monitor for now. DC tramadol and oxycodone as patient is not in any pain. Utilize Tylenol as needed. -Blood pressure has been in the 190s during this admission.-Patient is not taking any medications at home. Cardiology service is not recommended any medication therapy at present unless patient is protected by pacemaker. -He is noted to have an abdominal aortic aneurysm. 5 cm in diameter. Uncontrolled blood pressure is at risk of dissection however now the pacemaker he does have a risk of developing life-threatening bradycardia. Will follow up with the cardiology service regarding starting patient on antihypertensives other than beta blockers.
[2017-09-23 14:50] VITALS: BP 138/64
--- NOTE | 2017-09-23 15:33 | Cons- Psychiatry ---
Psychiatric Consult Date of Consult: 09/23/17 Reason for Consult: capacity Allergies: Coded Allergies: Iodine and Iodide Containing Produc (Severe, 01/21/16) Past History Past Medical History Neurological: NONE EENT: NONE Cardiovascular: aflutter, hypertension Respiratory: NONE Gastrointestinal: NONE Hepatic: NONE Renal: NONE, benign prost hyperplasia Musculoskeletal: osteoarthritis Psychiatric: NONE Endocrine: NONE Blood Disorders: NONE Cancer(s): NONE Past Surgical History Surgical History: hernia repair-inguinal (right side) Assessment/Plan Impression: Pt seen and examined, chart reviewed. 87 yo M with a pmhx of afib, htn and hip fracture BIB ambulance day after a fall. No LOC, no seizure, but persistent foot pain which prompted him to call 911. Has a history of non-compliance with f/u for afib, refused anticoagulation in the past. On this admit pt found to be in aflutter/afib. At the time of my exam he is adamantly denying anticoagulation and pacemaker placement. Pt reports he does not want a foreign instrument in his body or any blood thinners. Feels doctors are forcing care upon him that he does not want. He reports he is of sound mind and able to make hs own decisions. He is able to understand and articulate that refusing care could result in his or further disability and he is at peace with that given his age. He does not want his contacted by this keno writer / runner. He reports that "no matter how many times doctors speak with him he will not change his mind. He completed part of an MMSE then refused the rest "I dont want to play games" but scored well on the part her did complete. No endorsement of depression, PTSD (WWII) or suicidal ideation. MSE: Elderly man sitting in chair in isela in NAD. Hard of hearing. Mild dysarthria. No motor abnormalities. 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 [place] born, fought in [place] in [place] "I never killed anybody." Current Medications Sig/Lucrecia Start time Last Medication Dose Route Stop Time Status Admin Acetaminophen 500 MG .STK-MED ONE 09/22 2220 DC PO 09/22 2221 Acetaminophen 500 MG .STK-MED ONE 09/22 1814 DC PO 09/22 1815 Acetaminophen 500 MG Q8 09/21 2200 AC 09/22 PO 1400 Acetaminophen 650 MG Q6P PRN 09/21 184 AC PO Atropine Sulfate 1 MG ONE PRN 09/22 0315 AC IV Dextrose/Sodium 1,000 ML .[id number] 09/21 1845 DC 09/23 Chloride IV 1205 Heparin Sodium 5,000 UNIT Q8 09/21 2199 AC 09/23 (Porcine) SC 0611 Hydralazine HCl 5 MG ONCE ONE 09/23 0600 DC 09/23 IV 09/23 0601 0612 Lidocaine 1 PAT DAILY 09/21 2199 AC 09/23 EXT 1206 Melatonin 3 MG AT BEDTIME 09/21 2199 AC 09/22 PO 2226 Oxycodone HCl 5 MG Q8P PRN 09/21 221 DC PO Tramadol HCl 50 MG Q8P PRN 09/21 221 DC PO Laboratory Tests 09/23 09/23 09/23 09/22 1035 0640 0530 1615 Chemistry Sodium (137 - 145 mmol/L) 137 Potassium (3.5 - 5.1 mmol/L) 3.5 Chloride (98 - 107 mmol/L) 104 Carbon Dioxide (22 - 30 mmol/L) 24 Anion Gap (5 - 16) 8 BUN (9 - 20 mg/dL) 37 H Creatinine (0.7 - 1.2 mg/dL) 1.2 Estimated GFR (>60 ml/min) 57 L BUN/Creatinine Ratio (7 - 25 %) 30.8 H Troponin I (<0.11 ng/ml) 0.02 TSH (0.270 - 4.200 uIU/mL) 0.403 Free T4 (0.85 - 1.93 ng/dL) 1.26 Serology Lyme Disease Antibody (RATIO) 0.13 Urines Urine Color (YEL,AMB,STR) YEL Urine Clarity (CLEAR) TURBD H Urine pH (5.0 - 8.0) 7.0 Ur Specific [place] (1.001 - 1.035) 1.020 Urine Protein (NEG,<30 MG/DL) 100 H Urine Ketones (NEG) NEG Urine Nitrite (NEG) NEG Urine Bilirubin (NEG) NEG Urine Urobilinogen (0.1 - 1.0 EU/dl) 0.2 Ur Leukocyte Esterase (NEG) MOD H Ur Microscopic SEDIMENT EXAMINED Urine RBC (0 - 5 /HPF) >75 H Urine WBC (0 - 2 /HPF) PACKD H Ur Epithelial Cells (NONE,FEW) OCCAS Urine Bacteria (NEG/NONE) MANY H Urine Mucus (FEW,NONE) MANY H Urine Hemoglobin (NEG) LARGE H Urine Glucose (N MG/DL) NEG 09/22 09/22 09/22 0600 0440 0346 Chemistry Sodium (137 - 145 mmol/L) Cancelled 137 Cancelled Potassium (3.5 - 5.1 mmol/L) Cancelled 3.9 Cancelled Chloride (98 - 107 mmol/L) Cancelled 108 H Cancelled Carbon Dioxide (22 - 30 mmol/L) Cancelled 22 Cancelled Anion Gap (5 - 16) Cancelled 6 Cancelled BUN (9 - 20 mg/dL) Cancelled 38 H Cancelled Creatinine (0.7 - 1.2 mg/dL) Cancelled 1.4 H Cancelled Estimated GFR (>60 ml/min) 48 L BUN/Creatinine Ratio (7 - 25 %) Cancelled 27.1 H Cancelled Troponin I (<0.11 ng/ml) Cancelled 0.02 Hematology CBC w Diff NO MAN DIFF REQ WBC (4.8 - 10.8 /CUMM) 7.3 RBC (4.70 - 6.10 /CUMM) 3.78 L Hgb (14.0 - 18.0 G/DL) 11.9 L Hct (42 - 52 %) 35.5 L MCV (80.0 - 94.0 FL) 93.9 MCH (27.0 - 31.0 PG) 31.5 H MCHC (33.0 - 37.0 G/DL) 33.6 RDW (11.5 - 14.5 %) 13.8 Plt Count (130 - 400 /CUMM) 256 MPV (7.4 - 10.4 FL) 8.0 Gran % (42.2 - 75.2 %) 63.0 Lymphocytes % (20.5 - 51.1 %) 26.2 Monocytes % (1.7 - 9.3 %) 8.7 Eosinophils % (0 - 5 %) 1.5 Basophils % (0.0 - 2.0 %) 0.6 Absolute Granulocytes (1.4 - 6.5 /CUMM) 4.6 Absolute Lymphocytes (1.2 - 3.4 /CUMM) 1.9 Absolute Monocytes (0.10 - 0.60 /CUMM) 0.6 Absolute Eosinophils (0.0 - 0.7 /CUMM) 0.1 Absolute Basophils (0.0 - 0.2 /CUMM) 0 09/22 0336 Chemistry Troponin I Cancelled yo M hx cardiac conduction abnomalities who is refusing medical care. Pt has normal age related memory decline but no overt dementia. He does not endorse depression, hallucinations, PTSD or suicidality. He refuses to discuss his case in depth but does have a credible understanding of his situation and what his wishes are. P/ Suggest 1) Would speak with regarding the outcomes of his refusing anti-coagulation and pacemaker. 2) Agriculture Internship will reassess after discussion with .
[2017-09-23 22:24] VITALS: BP 150/82
[2017-09-24 07:19] VITALS: BP 166/78
--- NOTE | 2017-09-24 07:41 | Patient Discharge Instructions ---
Discharge Instructions General Discharge Information Special Instructions: - Patient would not want to be rehospitalized for A-flutter/bradycardia once being sent to short-term rehab. - Patient would need palliative care consult once being placed in short-term rehab. - Please follow up with your motion graphics designer Dr. Frey within 1-2 weeks of discharge. - Please follow up with your primary care physician within 1-2 weeks of discharge. Inform your primary care physician of this admission to . - Continue your current medications per discharge instructions. - Please watch for these problems: Fever, Chills, Nausea, Vomiting, Shortness of Breath, Productive Cough, Chest Pain/Discomfort, Abdominal Pain, Active Bleeding or Bloody urine/stool. Diet Continue normal diet: Yes Recommended Diet: Heart Healthy Activity Full Activity/No Limits: No Activity Self Limited: Yes Acute Coronary Syndrome Inclusion Criteria At DC or during hospital stay patient has or had the following: ACS DIAGNOSIS No Discharge Core Measures Meds if any: Prescribed or Continued at Discharge Meds if any: NOT Prescribed or Continued at Discharge Congestive Heart Failure Inclusion Criteria At DC or during hospital stay patient has or had the following: CHF DIAGNOSIS No Discharge Core Measures Meds if any: Prescribed or Continued at Discharge Meds if any: NOT Prescribed or Continued at Discharge Cerebrovascular accident Inclusion Criteria At DC or during hospital stay patient has or had the following: CVA/TIA Diagnosis No Discharge Core Measures Meds if any: Prescribed or Continued at Discharge Meds if any: NOT Prescribed or Continued at Discharge Venous thromboembolism Inclusion Criteria VTE Diagnosis No VTE Type NONE VTE Confirmed by (Test) NONE Discharge Core Measures - Per Current guidelines, there needs to be overlap - treatment for the first 5 days of Warfarin therapy. - If discharged on Warfarin prior to 5 days of - overlap therapy, the patient will need to be - assessed for post discharge needs including - *Post discharge parental anticoagulation - *Warfarin and/or parental anticoagulation education - *Follow up date to check INR post discharge At least 5 days overlap therapy as Inpatient No Meds if any: Prescribed or Continued at Discharge Note: Overlap Therapy is Warfarin and Anticoagulant Meds if any: NOT Prescribed or Continued at Discharge
--- NOTE | 2017-09-24 07:42 | PN- Housestaff ---
Subjective Follow-up For: 1. Mechanical fall 2. Atrial flutter with Bradycardia 3. Hypertension 4. JACQUELIN 5. 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 Subjective: No overnight event. Patient offered no complaint. Review of Systems Constitutional: Reports: see HPI. Objective Last 24 Hrs of Vital Signs/I&O Vital Signs Date Time Temp Pulse Resp B/P B/P Pulse O2 O2 Flow FiO2 Mean Ox Delivery Rate 09/24 0719 97.4 58 20 166/78 92 09/23 2224 96.7 37 20 150/82 92 Room Air 09/23 1702 94 Nasal 2.0L Cannula 09/23 1621 Nasal 2.0L Cannula 09/23 1450 97.7 72 20 138/64 90 Nasal 2.0L Cannula Intake & Output 09/24 0800 09/24 0000 09/23 1600 Intake Total 240 400 Output Total Balance 240 400 Intake, Oral 240 400 Number 2 1 Bowel Movements Patient 68.039 kg Weight Physical Exam General Appearance: Pt sleeping Cardiovascular: Irregular, bradly Lungs: Clear to Auscultation, Normal Air Movement Extremities: No Edema Current Medications: Current Medications Sig/Lucrecia Start time Last Medication Dose Route Stop Time Status Admin Acetaminophen 500 MG Q8 09/21 2199 AC 09/22 PO 1400 Acetaminophen 650 MG Q6P PRN 09/21 1845 AC PO Atropine Sulfate 1 MG ONE PRN 09/22 0315 AC IV Dextrose/Sodium 1,000 ML .[id number] 09/21 1845 DC 09/23 Chloride IV 1205 Heparin Sodium 5,000 UNIT Q8 09/21 2199 AC 09/23 (Porcine) SC 2032 Lidocaine 1 PAT DAILY 09/21 2199 AC 09/23 EXT 1206 Melatonin 3 MG AT BEDTIME 09/21 2199 AC 09/23 PO 2033 Oxycodone HCl 5 MG Q8P PRN 09/21 2215 DC PO Potassium Chloride 40 MEQ DAILY 09/24 1000 AC PO 09/25 1001 Tramadol HCl 50 MG Q8P PRN 09/21 2215 DC PO Last 24 Hrs of Lab/Willie Results Last 24 Hrs of Labs/Mics: Laboratory Tests 09/24/17 0624: CBC w Diff Pending, WBC Pending, RBC Pending, Hgb Pending, Hct Pending, MCV Pending, MCH Pending, MCHC Pending, RDW Pending, Plt Count Pending, MPV Pending 09/23/17 1035: Anion Gap 8, Estimated GFR 57 L, BUN/Creatinine Ratio 30.8 H Assessment/Plan Assessment: Mr. Matos is an 87-year-old man with a past medical history of hypertension, Atrial fibrillation not on AC(patient refuses), old troch hip fracture was brought from home in with a chief concern of inability to ambulate secondary to fall that occurred 3 days ago. Problem List; 1. Mechanical fall 2. Atrial flutter with Bradycardia 3. Hypertension 4. JACQUELIN - resolved 5. ??Chronic Compression ddeformities L1-L4 6. Incidental finding of 5cm infrarenal abdominal aortic aneurysm 7. 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 Atropine at bedside. Also continue to watch off anticoagulation per cardiology. - Echocardiogram pending. - Appreciate cardiology recommendations. - PT consult recommeded STR however patient denied STR options and would want to go home. - Psychiatric consult recommended discussion with , and over the phone this AM deferred the decision making to the patient, as above. - Pending case management input. - Patient currently not complaining of any back pain and states that he fractured his back when he had a fall 2 years ago. Will hold MRI for now. - JACQUELIN, patient had creatinine of 1.4 at the time of admission, trended down to 1.2 on latest lab. - Blood pressure this morning was 160s/80s. We will continue to monitor, if remains persistently high patient will need to be started on antihypertensive medications given aortic aneurysm and risk of dissection. - Outpatient follow-up for the incidental findings of infrarenal aortic aneurysm and sellar/suprasellar mass on head CT. DVT PPX ALPS Heart Healthy Diet DNR/DNI. Problem List: 1. Atrial flutter 2. Bradycardia Pain Ratin Pain Location: NA Pain Goal: Remain pain free Pain Plan: see AP Tomorrow's Labs & Rationales: N/A
[2017-09-24 09:02] LABS: ABSOLUTE BASOPHIL COUNT 0 /CUMM (0.0-0.2); ABSOLUTE EOSINOPHIL COUNT 0.1 /CUMM (0.0-0.7); ABSOLUTE GRANULOCYTE CT 5.8 /CUMM (1.4-6.5); ABSOLUTE LYMPH COUNT 1.5 /CUMM (1.2-3.4); ABSOLUTE MONOCYTE COUNT 0.4 /CUMM (0.10-0.60); BASOPHIL % 0.6 % (0.0-2.0); EOSINOPHIL % 1.7 % (0-5); GRANULOCYTE % 74.1 % (42.2-75.2); HEMATOCRIT 34.1 % (42-52); MEAN CORPUSCULAR HGB 31.6 PG (27.0-31.0); MEAN CORPUSCULAR HGB CONC 33.8 G/DL (33.0-37.0); MEAN CORPUSCULAR VOLUME 93.6 FL (80.0-94.0); MEAN PLATELET VOLUME 8.5 FL (7.4-10.4); PLATELET COUNT 254 /CUMM (130-400); RBC DISTRIBUTION WIDTH 13.7 % (11.5-14.5); RED BLOOD CELL CT 3.65 /CUMM (4.70-6.10); WHITE BLOOD CELL COUNT 7.9 /CUMM (4.8-10.8)
--- NOTE | 2017-09-24 09:58 | Cons- Wound Care ---
General Information and HPI Consulting Request Date of Consult: 09/24/17 Requested By: Patrick DOVE,[place] Reason for Consult: Right buttock pressure ulcer present on admission History of Present Illness: Patient is an 87-year-old gentleman admitted after a fall and found to be in atrial fibrillation. He was found to have a stage I pressure ulcer present on admission over his right medial buttock Allergies/Medications Allergies: Coded Allergies: Iodine and Iodide Containing Produc (Severe, 01/21/16) Home Med List: No Known Home Medications Review of Systems Review of Systems: Noncontributory Past History Travel History Traveled to [place] past 21 day No Medical History Blood Transfusion Hx: No Neurological: NONE EENT: NONE Cardiovascular: aflutter, hypertension Respiratory: NONE Gastrointestinal: NONE Hepatic: NONE Renal: NONE, benign prost hyperplasia Musculoskeletal: osteoarthritis Psychiatric: NONE Endocrine: NONE Blood Disorders: NONE Cancer(s): NONE Surgical History Surgical History: hernia repair-inguinal (right side) Family History Relations & Conditions If Any: MOTHER (cardimyopathyr). Psychosocial History Where Do You Live? Home Who Do You Live With? spouse Services at Home: None Primary Language: Faroese, Divehi Smoking Status: Former Smoker ETOH Use: denies use Illicit Drug Use: denies illicit drug use Living Will? unknown Functional Ability ADLs Independent: dressing, eating, toileting, bathing. Ambulation: independent Exam & Diagnostic Data Vital Signs and I&O Vital Signs Result Date Time Pulse Ox 92 09/24 718 B/P 166/78 09/24 718 Temp 97.4 09/24 07 Pulse 58 09/24 07 Resp 20 09/24 07 O2 Delivery Room Air 09/23 2224 O2 Flow Rate 2.0L 09/23 1702 Intake & Output 09/24 0000 09/23 1600 09/23 0800 Intake Total 240 400 625 Output Total 20 Balance 240 400 605 Intake, IV 525 Intake, Oral 240 400 100 Number 2 1 Bowel Movements Output, Urine 20 Patient 150 lb Weight Exam of the right buttock shows there to be a 4 x 5 m area of erythema which is partially blanchable there is no undermining sinus tracking. There is no periwound erythema Assessment/Plan Impression/Plan: 87-year-old gentleman who fell and was unable to get up found to have cardiac arrhythmia. He has a stage I pressure ulcer over the right medial buttock with intact skin. Recommend aggressive offloading use of barrier cream. Avoid friction and shear. Consult Acknowledgment - Thank you for your consult request.
--- NOTE | 2017-09-24 10:00 | PN- Att Addend ---
Attending Addendum Attending Brief Note Patient seen and examined. Resting comfortably not in any acute distress. Overnight on telemetry monitoring he continues to have episodes of severe bradycardia with heart rate dropping into the upper 30s. Patient remains asymptomatic. He remains without any complaints. Patient remains adamant on not having a pacemaker implanted. His assisted on being discharged. I did call the patient's this morning and had a conversation with her. She is aware of the glycerin operator recommendation of pacemaker placement. She however prefers to her for decision-making. She does not want anything done that is against her 's wishes. Consultation by the psychiatry service noted. I did explain clearly to the patient and his the need for the pacemaker placement. I also explained clearly the risks involved in not placing the pacemaker which include dizziness, loss of consciousness, fall and even . Despite this still does not want a pacemaker placed. His continues to defer to him for decision-making. I had a conversation with the regarding goals of care. I did explain to him that he will need to be discharged to correction facility further recommendations of the physical therapy service due to deconditioning. Patient and his verbalized understanding of the need for this. I did explain that if he is noted to be bradycardic at the facility he will likely be transferred right back to the hospital. Patient states that he does not wish to be transferred back to the hospital. He wishes to be kept comfortable in place. He does not wish to undergo any further diagnostic workup or treatment. He verbalized clearly that he does not wish to be rehospitalized. His blood pressure has improved today without any antihypertensive medications. Patient denies any back pain. He has not required Tylenol in over 24 hours. Wound care consultation regarding a stage I pressure ulcer over the right medial buttocks appreciated. Awaiting echocardiogram results. Recommendations: -Follow-up recommendations of the physical therapy service. If recommendations remain for patient to go to correction facility for short-term rehabilitation follow-up with case management service. Patient and wish to return to the facility they were at previously in [facility]. -Patient wishes not to be rehospitalized following discharge. -Patient will benefit from palliative care evaluation at the correction facility.
--- NOTE | 2017-09-24 10:39 | PN- Cardiology ---
See Addendum Subjective Subjective: The patient remains in atrial fibrillation with intermittent bradycardia. He has refused pacemaker and anticoagulation, and psychiatry indicates that he is competent to make decisions. He has agreed apparently to go to rehabilitation but does not wish to be rehospitalized. The patient did not cooperate with echocardiogram last evening and it was canceled. Objective Vital Signs and I&Os Vital Signs Date Time Temp Pulse Resp B/P B/P Pulse O2 O2 Flow FiO2 Mean Ox Delivery Rate 09/24 0719 97.4 58 20 166/78 92 09/23 2224 96.7 37 20 150/82 92 Room Air 09/23 1702 94 Nasal 2.0L Cannula 09/23 1621 Nasal 2.0L Cannula 09/23 1450 97.7 72 20 138/64 90 Nasal 2.0L Cannula Intake & Output 09/24 1600 09/24 0800 09/24 0000 09/23 1600 09/23 0800 09/23 0000 Intake Total 240 400 625 660 Output Total 20 Balance 240 400 605 660 Intake, IV 525 300 Intake, Oral 240 400 100 360 Number 2 1 1 Bowel Movements Output, Urine 20 Patient 150 lb 159 lb Weight Physical Exam: He is awake and alert and sitting in a chair. HEENT exam normal Chest clear Heart fairly regular rhythm, no murmurs No peripheral edema Current Medications: Current Medications Sig/Lucrecia Start time Last Medication Dose Route Stop Time Status Admin Acetaminophen 500 MG Q8 09/21 2199 AC 09/22 PO 1400 Acetaminophen 650 MG Q6P PRN 09/21 1845 AC PO Atropine Sulfate 1 MG ONE PRN 09/22 0315 AC IV Dextrose/Sodium 1,000 ML .[id number] 09/21 1845 DC 09/23 Chloride IV 1205 Heparin Sodium 5,000 UNIT Q8 09/21 2199 AC 09/24 (Porcine) SC 0747 Lidocaine 1 PAT DAILY 09/21 2199 AC 09/23 EXT 1206 Melatonin 3 MG AT BEDTIME 09/21 2199 AC 09/23 PO 2033 Oxycodone HCl 5 MG Q8P PRN 09/21 2215 DC PO Potassium Chloride 40 MEQ DAILY 09/24 1000 AC 09/24 PO 09/25 1001 0855 Tramadol HCl 50 MG Q8P PRN 09/21 2215 DC PO Results Last 48 Hrs of Labs/Mics: Laboratory Tests 09/24/17 0624: CBC w Diff NO MAN DIFF REQ, RBC 3.65 L, MCV 93.6, MCH 31.6 H, MCHC 33.8, RDW 13.7, MPV 8.5, Gran % 74.1, Lymphocytes % 19.0 L, Monocytes % 4.6, Eosinophils % 1.7, Basophils % 0.6, Absolute Granulocytes 5.8, Absolute Lymphocytes 1.5, Absolute Monocytes 0.4, Absolute Eosinophils 0.1, Absolute Basophils 0 09/23/17 1035: Anion Gap 8, Estimated GFR 57 L, BUN/Creatinine Ratio 30.8 H 09/23/17 0640: TSH 0.403, Free T4 1.26, Lyme Disease Antibody 0.13 09/23/17 0530: Urine Color YEL, Urine Clarity TURBD H, Urine pH 7.0, Ur Specific [place] 1.020 , Urine Protein 100 H, Urine Ketones NEG, Urine Nitrite NEG, Urine Bilirubin NEG, Urine Urobilinogen 0.2, Ur Leukocyte Esterase MOD H, Ur Microscopic SEDIMENT EXAMINED, Urine RBC >75 H, Urine WBC PACKD H, Ur Epithelial Cells OCCAS, Urine Bacteria MANY H, Urine Mucus MANY H, Urine Hemoglobin LARGE H, Urine Glucose NEG 09/22/17 1759: Urine Color Cancelled, Urine Clarity Cancelled, Urine pH Cancelled, Ur Specific [place] Cancelled, Urine Protein Cancelled, Urine Ketones Cancelled, Urine Nitrite Cancelled, Urine Bilirubin Cancelled, Urine Urobilinogen Cancelled, Ur Leukocyte Esterase Cancelled, Ur Microscopic Cancelled, Urine Hemoglobin Cancelled, Urine Glucose Cancelled 09/22/17 1615: Troponin I 0.02 Recent Imaging Studies: Echocardiogram canceled due to the patient's refusal to have the procedure done. Assessment/Plan Assessment/Plan The patient remains in atrial fibrillation/flutter with significant periods of bradycardia. However, he is refusing pacemaker and anticoagulation. He is apparently competent to make this decision. He can be removed from telemetry monitoring at this time. Please call for any further cardiology input. Continue telemetry? No
--- NOTE | 2017-09-24 13:34 | Discharge Summary ---
Visit Information Visit Dates Admission Date: 09/21/17 Discharge Date: 09/24/2017 Hospital Course Course Attending Physician: Nimco Nguyen MD Primary Care Physician: Tyrese DOVE,Mike Rose Consulting Request: Consulting Specialty: Cardiology Consulting Physician: Dr. Castillo, Dr. Frey Reason for Consult: Severe bradycardia Hospital Course: Mr. Matos is an 87-year-old man with a past medical history of hypertension, Atrial fibrillation not on anticoagulation (patient refuses), old troch hip fracture was brought from home in with a chief concern of inability to ambulate secondary to fall that occurred 3 days prior this admission. He also had a chief concern of increased pain on left hip, left knee and left foot. As per the pt, he fell down when there was a power outage a few nights ago prior this admission and could not get up off the floor. He remained on the floor overnight, until the help arrived in the a.m. He denied any loss of consciousness, prodromal symptoms, or had any loss of bladder or bowel function. He reported decreased by mouth intake after the episode occurred, and had been taking aspirin ever since. He had no home medications and had not seen any primary care physician in the last few years. He also stated that he does not want to take any medications. For his atrial fibrillation, he has not been taking any medications such as anticoagulates or rate controlling medications. At the time of [id number] 97.9, pulse rate 56, respiration 18, blood pressure 176/87, 97% on room air. On examination: General Exam: AAOx3, No acute distress, decreased vision ( which is chronic ) Skin: No rashes, no breakdown HEENT: PERRLA, EOMI Neck: Supple, No JVD No cervical lymphadenopathy CVS: Reg Rate, Normal S1,S2, No MGR Resp: Normal air entry, no ronchi/rales Abdomen: Soft, No tenderness, Normal Bowel Sounds Neuro: Normal Speech, Strength 5/5 b/l x 4 extremities, Sensation intact, CN III -XII NL, Reflexes 2+ Extremities: No cyanosis, pedal edema, ecchymosis in the sacral area w/ associated tenderness. Pertinent lab findings: WBC 8.6, hemoglobin 13.4, platelets 268, sodium 139, potassium 4.4, BUN 38, creatinine 1.4. Liver chemistries-AST 25, ALT 16, total protein 8.4. CPK 157. Urinalysis-Positive leukocyte esterase, WBC packed, Hemoglobin Large. EKG revealed atrial flutter, rate controlled, no ST-T wave changes. 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 A pituitary protocol MRI with and without IV contrast is recommended for further assessment. A primary pituitary lesion such as a macroadenoma is favored with an aneurysm felt to be much less likely. - There is ventricular prominence is disproportionate to sulcal prominence that can be correlated for clinical signs of normal pressure hydrocephalus. - No intracranial hemorrhage. There is an extra-axial fluid collection adjacent to the lateral left cerebellum. CT lumbar spine: - Stable appearing chronic compression deformity at T12. Age-indeterminate compression deformities at the L1-L4 levels with associated endplate Schmorl's nodes thickening definitively assessed with MRI if indicated. Multilevel lumbar spondylosis that is greatest at L4-L5 were multifactorial degenerative changes result in moderate bilateral foraminal stenosis. - No acute osseous findings within the pelvis. Significant bladder wall thickening with adjacent stranding that could reflect cystitis and the can be correlated with urinalysis. Distal ureters are mildly dilated. - Aneurysmal dilatation of the infrarenal abdominal aorta measuring up to 5 cm in AP dimension. Based on the atherosclerotic calcific pattern of the abdominal aorta there may be a few penetrating atherosclerotic ulcers along the periphery of the infrarenal abdominal aorta. No retroperitoneal hematoma is identified. 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 - There is a large large bowel and fat containing right inguinal hernia without evidence of bowel obstruction. - Cholelithiasis. X-ray foot, hip, knee, tibia-fibula: 1. Diffuse osteopenia. No definite acute fracture involving the left hip, left knee, left tibia and fibula, and left foot. 2. As discussed above, the bony sacrum and coccyx are not adequately assessed and while the appearance is similar to the previous pelvis film, subtle fracture deformity cannot be excluded. 3. Left hip hardware transfixing an old intratrochanteric hip fracture appears intact and small amount of lucency around the intramedullary nail remains stable, possibly related to foreign body reaction. The etiology of his fall was felt to be multifactorial with dehydration, cardiac causes, and/or deconditioning as possible contributors. In regards to his radiological findings, he has stable chronic compression deformity at T12. Bony sacrum and coccyx by chest x-ray could not be visualized to rule out a fracture, which could be evaluated further. He also had an incidental diagnosis of aneurysmal dilatation in the abdominal aorta up to 5 cm, with no previous findings to follow up. He was admitted to Telemetry for the management of the following Problem List; 1. Mechanical fall, with compression deformities in L1-L4 Orthopedic consult was obtained on admission, and recommended MRI to assess the acuity of the compression fracture, and suggested lumbosacral support could be used for comfort and to help with ambulation, though there could be other significant limitations to ambulation. However, the patient stated that the fracture was from a fall 2 years ago so MRI was not done during hospital stay. Patient's back pain resolved spontaneously and he did not require Tylenol over 24 hours prior discharge. No other fractures were identified from imaging. 2. 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 His thyroid function tests were normal and his lyme disease antibody test was negative. He had episodes of severe bradycardia dropping into 30s overnights. However, patient remained asymptomatic and offered no complaints. He was counselled by hospitalist team and home health aid about the need for a pacemaker, but ramained adamant about not having a pacemaker implanted. Patient' s was also contacted and was made aware of the need for pacemaker placement and the risks of not having a pacemaker clearly explained to her which include dizziness, loss of consciousness, fall and even . Patient and his verbalized understanding of above and the need to be discharged to [facility] facility for further physical therapy service due to deconditioning. The patient also stated that he does not wish to be transferred back to the hospital. He wishes to be kept comfortable in place. He does not wish to undergo any further diagnostic workup or treatment. He verbalized clearly that he does not wish to be rehospitalized. Patient and wish to return to the [facility] facility they were at previously in [facility]. Patient also refused anticoagulation for his atrial fibrillation\flutter. 3. Hypertension Patient received one dose of Hydralazine 5mg IV once for hypertension into 190s/ 100s, and resolved spontaneously to 150-160s/60-80s over the rest of hospital course. 4. JACQUELIN Patient's creatinine was 1.4 on admission likely due to dehydration, and resolved to 1.2 after IV fluid repletion. 5. Incidental finding of 5cm infrarenal abdominal aortic aneurysm, and large sellar/suprasellar mass on Head CT. Patient was advised to follow up outpatient for above two incidental findings. Allergies: Coded Allergies: Iodine and Iodide Containing Produc (Severe, 01/21/16) Pertinent Lab Results: SERVICE DATE: 09/21/17 EXAM TYPE: RAD - XRY-FOOT COMPLETE, LEFT; XRY-HIP 2-3 VIEWS, LEFT; XRY-KNEE COMPLETE LEFT; [id number], LEFT IMPRESSION: 1. Diffuse osteopenia. No definite acute fracture involving the left hip, left knee, left tibia and fibula, and left foot. 2. As discussed above, the bony sacrum and coccyx are not adequately assessed and while the appearance is similar to the previous pelvis film, subtle fracture deformity cannot be excluded. 3. Left hip hardware transfixing an old intratrochanteric hip fracture appears intact and small amount of lucency around the intramedullary nail remains stable, possibly related to foreign body reaction. SERVICE DATE: 09/21/17 EXAM TYPE: CAT - CT LUMB SPINE WO IV CONTRAST; CT PELVIS WO IV CONTRAST IMPRESSION: - Stable appearing chronic compression deformity at T12. Age-indeterminate compression deformities at the L1-L4 levels with associated endplate Schmorl's nodes thickening definitively assessed with MRI if indicated. Multilevel lumbar spondylosis that is greatest at L4-L5 were multifactorial degenerative changes result in moderate bilateral foraminal stenosis. - No acute osseous findings within the pelvis. Significant bladder wall thickening with adjacent stranding that could reflect cystitis and the can be correlated with urinalysis. Distal ureters are mildly dilated. - Aneurysmal dilatation of the infrarenal abdominal aorta measuring up to 5 cm in AP dimension. Based on the atherosclerotic calcific pattern of the abdominal aorta there may be a few penetrating atherosclerotic ulcers along the periphery of the infrarenal abdominal aorta. No retroperitoneal hematoma is identified. 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 - There is a large large bowel and fat containing right inguinal hernia without evidence of bowel obstruction. - Cholelithiasis. 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 A pituitary protocol MRI with and without IV contrast is recommended for further assessment. A primary pituitary lesion such as a macroadenoma is favored with an aneurysm felt to be much less likely. - There is ventricular prominence is disproportionate to sulcal prominence that can be correlated for clinical signs of normal pressure hydrocephalus. - No intracranial hemorrhage. There is an extra-axial fluid collection adjacent to the lateral left cerebellum. Disposition Summary Disposition Principal Diagnosis: 1. Mechanical fall 2. Atrial fibrillation\flutter with Bradycardia 3. Hypertension 4. Acute kidney injury from dehydration 5. Chronic Compression ddeformities L1-L4 6. Incidental findings of 5cm infrarenal abdominal aortic aneurysm 7. Incidental findings of large sellar/suprasellar mass on Head CT Additional Diagnosis: As above Discharge Disposition: SNF Discharge Instructions General Discharge Information Code Status: Do Not Resucitate/Intubat Patient's Diet: Heart Healthy Patient's Activity: As tolerated Follow-Up Instructions/Appts: - Patient would not want to be rehospitalized for A-flutter/bradycardia once being sent to short-term rehab. - Patient would need palliative care consult once being placed in short-term rehab. - Please follow up with your home health aid Dr. Frey within 1-2 weeks of discharge. - Please follow up with your primary care physician within 1-2 weeks of discharge. Inform your primary care physician of this admission to [facility]. -Patient is not on any medications Copies To: Tyrese DOVE,Mike Rose; Tk DOVE,Mike Lynne Attending MD Review Statement Documenting Attending: Nimco Nguyen MD Other Findings: Discharged in stable condition.
[2017-09-24 14:30] VITALS: BP 166/78
--- NOTE | 2017-09-24 15:17 | ECHOCARDIOGRAM REPORT ---
MARBELLA ROSENBERG Age: 87 : 1930 Gender: M Exam Date: 09/23/2017 17:39 Exam Location: [address] Ht (in): 70 Wt (lb): 159 BSA: 1.89 BP: 152 / 86 Ordering Physician: Mike Frey MD Referring Physician: Mike Frey MD Technologist: Yg Mccray [facility] Room Number: 181 Indications: AFIB/FLUTTER Rhythm: Atrial fibrillation Technical Quality: Good FINDINGS Left Ventricle Normal size left ventricle. Mild to moderate concentric left ventricular hypertrophy. Normal left ventricular ejection fraction visually estimated at >65 %. No obvious regional wall motion abnormalities. Right Ventricle Right ventricle not well visualized. Right Atrium Right atrium not well visualized. Left Atrium Left atrium not well visualized. Mitral Valve Mild thickening/calcification of the mitral valve leaflets. Mild to moderate mitral annular calcification. No mitral regurgitation. Aortic Valve Focal thickening of the aortic valve cusps. Trace aortic regurgitation. Tricuspid Valve Tricuspid valve not well visualized, grossly normal. Pulmonic Valve Pulmonic valve not well visualized, grossly normal. No pulmonic regurgitation. Pericardium No pericardial or pleural effusion. Great Vessels Mildly dilated aortic root CONCLUSIONS This is very limited echocardiogram due to patient noncooperation. Only limited parasternal views are available. Very limited Doppler information is available. Mild to moderate concentric left ventricular hypertrophy. Normal left ventricular ejection fraction visually estimated at >65 No obvious regional wall motion abnormalities. Left atrium not well visualized. Mild thickening/calcification of the mitral valve leaflets. Mild to moderate mitral annular calcification. No mitral regurgitation. Focal thickening of the aortic valve cusps. Trace aortic regurgitation. Mildly dilated aortic root Mike Frey M.D. (Electronically Signed) Final Date: 24 September 2017 15:16 MEASUREMENTS (Male / Female) Normal Values 2D ECHO LV Diastolic Diameter PLAX 4.8 cm 4.2 - 5.9 / 3.9 - 5.3 cm LV Systolic Diameter PLAX 3.0 cm 2.1 - 4.0 cm LV Fractional Shortening PLAX 37.5 % 25 - 46 % LV Ejection Fraction 2D Teich 67.4 % IVS Diastolic Thickness 1.3 cm LVPW Diastolic Thickness 1.3 cm LV Relative Wall Thickness 0.5 RV Internal Dim ED PLAX 3.2 cm 1.9 - 3.8 cm Aortic Root Diameter 4.1 cm LA Systolic Diameter LX 3.5 cm 3.0 - 4.0 / 2.7 - 3.8 cm
[2017-09-24 16:44] VITALS: BP 112/70
== END 2017-09-24 15:31 | DRG 309 ==
LOC: ERH 10:49 → 1NO 15:52 → ERHI 15:52 → ENRESERV 16:15 → ENTRNSPT 19:16 → EDTRNSPTSTS 19:26 → 1NO 19:27 → 2NA 19:33 → CMPTRNSPT 19:50 → 1NO 22:34 → ENPENDDIS 09-24 14:19 → 1NO 09-24 15:31
PROVIDERS: Internal Medicine; Physician Assistant Medical; Student in an Organized Health Care Education/Training Program
DX: I48.91 Unspecified atrial fibrillation (principal); M48.56XA Collapsed vertebra, not elsewhere classified, lumbar region, initial encounter for fracture; N17.9 Acute kidney failure, unspecified; L89.311 Pressure ulcer of right buttock, stage 1; E86.0 Dehydration; I48.92 Unspecified atrial flutter; R15.9 Full incontinence of feces; D35.2 Benign neoplasm of pituitary gland; I12.9 Hypertensive chronic kidney disease with stage 1 through stage 4 chronic kidney disease, or unspecified chronic kidney disease; I51.7 Cardiomegaly; I71.4 Abdominal aortic aneurysm, without rupture; R00.1 Bradycardia, unspecified; W19.XXXA Unspecified fall, initial encounter; Z91.81 History of falling; Z91.14 Patient's other noncompliance with medication regimen; W18.30XA Fall on same level, unspecified, initial encounter; Y92.013 Bedroom of single-family (private) house as the place of occurrence of the external cause; Z88.8 Allergy status to other drugs, medicaments and biological substances; M25.562 Pain in left knee; M79.672 Pain in left foot; M19.90 Unspecified osteoarthritis, unspecified site; M85.89 Other specified disorders of bone density and structure, multiple sites; Z66 Do not resuscitate; N18.9 Chronic kidney disease, unspecified; K80.20 Calculus of gallbladder without cholecystitis without obstruction; N40.0 Benign prostatic hyperplasia without lower urinary tract symptoms; Z87.891 Personal history of nicotine dependence; R22.0 Localized swelling, mass and lump, head
CPT/HCPCS: 1NP; 86618; 36415; 36592; 73502-LT; 73562-LT; 73590-LT; 73630-LT; 81001; 82436; 87086; 87147; 93005; 93010; 93308; 93321; 97110-GO; 97116-GO; 97162-GP; 97530-GO; J0360; J0461; J1644; J7042